=== PATIENT | male | born 1985 | race Caucasian/White ===

== ENCOUNTER → 2019-02-16 18:17 | Outpatient (CLI) | payer OTHER, SELFPAY ==
[2019-02-16 18:43] LABS: Basophils # 0.1 K/mm3 (0-0.2); Basophils % 0.6 % (0.1-2.0); Eosinophils # 0.4 K/mm3 (0.0-0.4); Eosinophils % 4.6 % (0.1-12.0); Hematocrit 44.4 % (42.0-52.0); Hemoglobin 15.3 g/dL (14.1-18.0); Lymphocytes # 2.2 K/mm3 (0.7-4.5); Lymphocytes % 27.2 % (10-50); Mean Corpuscular HGB Conc 34.4 g/dL (31.8-35.4); Mean Corpuscular Hemoglobin 29.3 pg (27.0-31.2); Mean Corpuscular Volume 85.2 fl (80-94); Mean Platelet Volume 8.3 fl (7.4-10.4); Monocytes # 0.6 K/mm3 (0.1-1.0); Monocytes % 7.6 % (1.7-9.3); Neutrophils # 4.9 K/mm3 (1.8-7.8); Neutrophils % 60.1 % (37.0-80.0); Platelet Count 395 K/mm3 (142-424); Red Blood Count 5.22 M/mm3 (4.60-6.20); Red Cell Distribution Width 12.5 % (11.5-17.5); White Blood Count 8.2 K/mm3 (4.8-10.8)
[2019-02-16 19:34] LABS: Alanine Aminotransferase 66 U/L (12-78); Albumin/Globulin Ratio 1.2 (1.1-1.8); Alkaline Phosphatase 91 U/L (46-116); Anion Gap 17.8 mEq/L (5-15); Aspartate Amino Transferase 37 U/L (15-37); Bilirubin,Total 0.4 mg/dL (0.2-1.0); Blood Urea Nitrogen 13 mg/dL (7-18); Calcium 9.1 mg/dL (8.5-10.1); Carbon Dioxide 22 mmol/L (21.0-32.0); Chloride 107 mmol/L (98-107); Cholesterol 166 mg/dL (140-200); Creatinine,Serum 0.89 mg/dL (0.70-1.30); Estimated Glomerular Filt Rate 99 ml/min (>60); GFR (African American) 120 ML/MIN (>60); Globulin 3.3 gm/dl (1.3-3.2); Glucose 106 mg/dL (74-106); HDL Cholesterol 33 mg/dL (27-67); LDL Cholesterol 80 mg/dL (0-130); Potassium 3.8 mmoL/L (3.5-5.1); Sodium 143 mmol/L (136-145); T4 (Thyroxine) 8.8 ug/dl (4.7-13.3); Total Protein,Serum 7.3 gm/dL (6.4-8.2); Triglycerides 266 mg/dL (30-200); VLDL Cholesterol 53 mg/dL (0-40)
[2019-02-18 07:13] LABS: Hep A Ab, IgM Negative (Negative); Hepatitis B Core Antibody IgM Negative (Negative); Hepatitis B Surface Antigen Negative (Negative)
[2019-02-19 17:23] LABS: Hepatitis C Antibody <0.1 s/co ratio (0.0-0.9)
== END ==
PROVIDERS: Visit Provider Nurse Practitioner Family
DX: E66.9 Obesity, unspecified (principal); Z13.220 Encounter for screening for lipoid disorders; Z13.21 Encounter for screening for nutritional disorder; Z11.59 Encounter for screening for other viral diseases; E55.9 Vitamin D deficiency, unspecified
CPT/HCPCS: 80053; 80061; 80074; 82652; 84436; 84443; 85025

== ENCOUNTER 2020-02-23 15:52 | Emergency (ER) | payer OTHER, SELFPAY ==
[2020-02-23 16:00] VITALS: BP 137/73; PULSE 60; RESP 20; TEMP 36.7; O2SAT 100; BMI 29.9
[2020-02-23 16:16] VITALS: BP 137/73; PULSE 60; RESP 20; TEMP 36.7; O2SAT 100; BMI 29.9
[2020-02-23 16:20] LABS: Apearance,Urine Cloudy (Clear); Color,Urine Red (Yellow); Specific Gravity, Urine 1.015 (1.005-1.030)
[2020-02-23 16:21] LABS: Blood, Urine 3+ (Negative); Glucose,Urine (UA) 100 (Negative); Ketones,Urine 40 (Negative); Protein,Urine 3+ (Negative)
[2020-02-23 16:22] LABS: Bilirubin,Urine 3+ (Negative); UTC Leukocyte Esterase,Urine 3+ (Negative); UTC Nitrate,Urine Positive (Negative); Urobilinogen,Urine 4 EU/dl (0.2)
--- NOTE | 2020-02-23 16:38 | HMH.EDUTC ---
[facility] [place] Clinical Impression: UTI (urinary tract infection) Qualifiers: Urinary tract infection type: site unspecified Hematuria presence: with hematuria Qualified Code(s): N39.0 - Urinary tract infection, site not specified Hematuria Qualifiers: Hematuria type: gross Qualified Code(s): R31.0 - Gross hematuria Disposition: Home, Self-Care Condition on Discharge: Good Instructions: Blood in Urine, DI for Urinary Tract Infection (UTI), DI for Hematuria, Ciprofloxacin Additional Instructions: Increase fluids. Water not Soda or Tea *Start antibiotic immediately and be sure to take as ordered for the FULL length of time although you should start to see improvement over the next 48 hours *Be SURE to follow up anytime for new or worsening symptoms with your family doctor. AND in 48 hours for urine culture results with your family doctor, if you do not have a doctor then you may call back to the [facility] for urine culture results and further treatment. We do recommend that you choose and establish care with a Primary Care Physician. AND follow up with them in 10-14 days to repeat UA to ensure infection is resolved and blood no longer present *Be sure to let your PCP know that we sent urine cultures from the [facility] so they can follow up to ensure that you area the on the correct antibiotic Call your doctor office and make appointment for 48 hours (2 days from today) to follow up and get the results of your urine culture and further treatment Make sure to take antibiotics and follow up with Family Doctor immediately if no improvement or any worsening of symptoms for further evaluation and referral to Urology if needed Straight to ER if any worsening of pain in your right side, worsening of blood in urine or any life threatening symptoms Return if needed Prescriptions: Ciprofloxacin HCl [Cipro 500mg Tab] 500 mg PO BID 10 Days #20 tab Transmission Status: Received by [id number] Referrals: Jaron Fritz MD [Primary Care Provider] - As needed Tone Mirza MD [Staff Physician] - As needed Time of Disposition: 16:46 Medical Decision Making - Renato Inquiry Pt receiving controlled substance: No Renato was queried for this patient: No Vital Signs: 02/23/20 16:00 02/23/20 16:16 02/23/20 16:52 Temperature 98.1 F 98.1 F 98.1 F Temperature Source Temporal Artery Scan Oral Pulse Rate 60 Pulse Rate [Right] 60 60 Respiratory Rate 20 20 20 Blood Pressure 137/73 Blood Pressure [Right Arm] 137/73 137/73 Blood Pressure Mean [Right Arm] 94 94 Blood Pressure Source Automatic Cuff Blood Pressure Source [Right Arm] Automatic Cuff Blood Pressure Position Sitting Blood Pressure Position [Right Arm] Sitting 02 Sat by Pulse Oximetry 100 100 Oxygen Delivery Method Room Air - Lab Data Lab results reviewed: Yes: I reviewed the patient's lab results. Lab Results 02/23/20 16:19: Urine Color Red, Urine Appearance Cloudy, Urine pH 5.0, Ur Specific [place] 1.015, Urine Protein 3+, Urine Glucose (UA) 100, Urine Ketones 40, Urine Blood 3+, Urine Nitrate Positive A, Urine Bilirubin 3+ A, Urine Urobilinogen 4, Ur Leukocyte Esterase 3+ A Orders (Tests/Meds): ORDERS Category Date Time Status Urine Culture Stat Micro 02/23/20 16:10 Ordered - Reevaluation(s) Time: 16:30 Reevaluation #1: Patient urine results viewed and discussed with patient Recommended transfer to ED for further work up and evaluation and CT to rule out kidney stones and other findings in urine Patient advised that he has been dieting Patient declined transfer states that he isnt having and pain at this time just some discomfort when he urinates again Discussed with patient the associated risks and still declined transfer States that he will try antibiotics and if still having issues will follow up with PCP or Urology that he did not want to go back over to the ED Time: 16:50 Reevaluation #3: Again discussed with patient transfer to the
[2020-02-23 16:52] VITALS: BP 137/73; PULSE 60; RESP 20; TEMP 36.7; O2SAT 100
== END 2020-02-23 16:55 | disposition home or self-care (01) ==
PROVIDERS: Emergency Provider Nurse Practitioner; PCP Emergency Medicine
DX: N30.01 Acute cystitis with hematuria (principal); Z88.1 Allergy status to other antibiotic agents
CPT/HCPCS: 81003; 87086; 99201

== ENCOUNTER → 2020-03-05 16:46 | Outpatient (CLI) | payer OTHER, SELFPAY | PROVIDERS: Visit Provider Emergency Medicine | DX: N39.0 Urinary tract infection, site not specified (principal) | CPT/HCPCS: 87086 ==

== ENCOUNTER 2020-07-10 13:51 | Emergency (ER) | payer OTHER, SELFPAY ==
--- NOTE | 2020-07-10 13:54 | HMH.EDGENADL ---
ED Disposition Clinical Impression: Kidney stone on right side UTI (urinary tract infection) Qualifiers: Urinary tract infection type: acute cystitis Hematuria presence: with hematuria Qualified Code(s): N30.01 - Acute cystitis with hematuria Disposition: Home, Self-Care Condition on Discharge: Good Instructions: Acute Abdominal Pain Additional Instructions: Please take meds as prescribed and use ibuprofen, always with food, for pain. Drink plenty of fluids. Please follow-up tomorrow with urologist for further management of kidney stones. Immediately return if any fever/chills, generalized malaise/weakness, intractable nausea/vomiting, increased pain, inability to follow-up with urology, or any other new concerning symptoms. Prescriptions: cephALEXin [Cephalexin 500mg Tab] 500 mg PO Q6H 10 Days #40 tab Transmission Status: Received by [id number] Tamsulosin HCl [Flomax 0.4mg capsule] 0.4 mg PO HS 7 Days #7 cap Transmission Status: Received by [id number] Referrals: Jaron Fritz MD [Primary Care Provider] - - Critical Care Critical Care Time: No Attestation: On , the high probability of a clinically significant, sudden or life threatening deterioration of the following system(s) required my full and direct attention, intervention and personal management. The time I documented below is in addition to time spent performing reported procedures but includes the following listed in this critical care notation. Medical Decision Making - Medical Records Medical records reviewed: Yes: I reviewed the patient's medical records. - Renato Inquiry Pt receiving controlled substance: No Vital Signs: 07/10/20 13:57 07/10/20 15:00 07/10/20 15:48 Temperature 97.9 F Temperature Source Oral Pulse Rate [Right Brachial] 93 H 87 86 Respiratory Rate 17 17 17 Blood Pressure [Right Arm] 144/97 H 131/82 139/76 Blood Pressure Mean [Right Arm] 112 98 97 Blood Pressure Source [Right Arm] Automatic Cuff Automatic Cuff Automatic Cuff Blood Pressure Position [Right Arm] Sitting Sitting Sitting 02 Sat by Pulse Oximetry 97 98 98 Oxygen Delivery Method Room Air Room Air Room Air - Lab Data Lab Results 07/10/20 14:10: WBC 10.0, RBC 5.08, Hgb 15.1, Hct 45.2, MCV 88.9, MCH 29.7, MCHC 33.4, RDW 12.5, Plt Count 390, MPV 7.4, Neut % (Auto) 63.8, Lymph % (Auto) 23.3, [place] % (Auto) 10.9 H, Eos % (Auto) 1.5, Baso % (Auto) 0.5, Neut # (Auto) 6.4, Lymph # (Auto) 2.3, [place] # (Auto) 1.1 H, Eos # (Auto) 0.2, Baso # (Auto) 0.1 07/10/20 14:10: Sodium 141, Potassium 3.6, Chloride 105, Carbon Dioxide 26, Anion Gap 13.6, BUN 17, Creatinine 1.30 H, Estimated Creat Clear 120, Estimated GFR 64, Est GFR ( Amer) 77, Glucose 112 H, Calcium 9.6, Total Bilirubin 1.0, AST 32, ALT 28, Alkaline Phosphatase 71, Total Protein 7.7, Albumin 4.7, Globulin 3.0, Albumin/Globulin Ratio 1.6, Amylase 55, Lipase 50 07/10/20 14:35: Urine Color Yellow, Urine Appearance Clear, Urine pH 6.0, Ur Specific [place] 1.025, Urine Protein 1+, Urine Glucose (UA) Negative, Urine Ketones Negative, Urine Blood 3+, Urine Nitrate Negative, Urine Bilirubin Negative, Urine Urobilinogen 0.2, Ur Leukocyte Esterase Trace, Urine RBC Occasional, Urine WBC 5-10 Result diagrams: 07/10/20 14:10 07/10/20 14:10 Orders (Tests/Meds): ED MEDICATIONS Generic Name Dose Route Start Last Admin Trade Name Freq PRN Reason Stop Dose Admin Sodium Chloride 1,000 mls @ 999 mls/hr 07/10/20 15:30 07/10/20 15:57 Sod Chlor 0.9% 1000ml Bag IV 07/10/20 16:30 999 mls/hr .Q1H1M SHANELLE Administration Discontinued Medications Generic Name Dose Route Start Last Admin Trade Name Freq PRN Reason Stop Dose Admin Cephalexin HCl 500 mg 07/10/20 16:24 Cephalexin 500mg Capsule PO 07/10/20 16:25 ONCE ONE Protocol Medical Decision Narrative: Patient presents the emergency department with complaints of right flank pain. At this time, differential di
[2020-07-10 13:57] VITALS: BP 144/97; PULSE 93; RESP 17; TEMP 36.6; O2SAT 97; BMI 28.8
--- NOTE | 2020-07-10 14:04 | CT_ITS ---
PROCEDURE: CT ABDOMEN PELVIS WO CON CLINICAL INDICATION: kidney stone rule out Right-sided abdominal pain COMPARISON: No exams were available for comparison TECHNIQUE: Axial images obtained with sagittal and coronal reformats. All CT scans at the facility use one or more dose reduction, viz: automated exposure control, ma/kV adjustment per patient size (including targeted exams where dose is matched to indication, i.e. head), or iterative reconstruction technique. FINDINGS: LOWER THORAX: No acute finding ABDOMEN & PELVIS: There is a 11 mm hypodensity in the hepatic dome on the left and may represent a cyst or hemangioma. Focal decreased attenuation is present in the left lobe of the liver at the falciform ligament region consistent with focal fatty infiltration. The gallbladder, spleen, adrenal glands, and pancreas have an unremarkable appearance. There is moderate to severe right hydronephrosis and hydroureter secondary to a 9 mm stone at the ureterovesical junction. There is also a smaller stone in the distal 1/3 of the right ureter measuring 3 mm. This is proximal to the UVJ stone. 2 mm stone is present in the mid polar region of the left kidney and in the lower pole of the right kidney. There is mild stranding of the right perinephric and [place] renal and periureteral fat with minimal stranding of the fat in the right pericolic gutter. The colon appears mildly thickened but could be due to nondistention. There are scattered diverticula but no evidence of diverticulitis. The appendix is also slightly prominent at 7 mm. There is no stranding of the periappendiceal fat. No acute bony findings. There is a small left inguinal hernia containing fat. There is a small umbilical hernia containing fat. IMPRESSION: 1. 9 mm right ureterovesical junction stone with moderate to severe right-sided hydroureteronephrosis. 2. Bilateral nephrolithiasis 3. Mild prominence of the appendix at 7 mm which is of questionable clinical significance. Please correlate with clinical parameters. No stranding of the periappendiceal fat. 4. Other nonacute findings as described above Dictated by: Sukhi Dozier MD 07/10/2020 14:54 Sukhi Dozier MD in [place] 07/10/2020 14:54
[2020-07-10 14:33] LABS: Basophils # 0.1 K/mm3 (0-0.2); Basophils % 0.5 % (0.1-2.0); Eosinophils # 0.2 K/mm3 (0.0-0.4); Eosinophils % 1.5 % (0.1-12.0); Hematocrit 45.2 % (42.0-52.0); Hemoglobin 15.1 g/dL (14.1-18.0); Lymphocytes # 2.3 K/mm3 (0.7-4.5); Lymphocytes % 23.3 % (10-50); Mean Corpuscular HGB Conc 33.4 g/dL (31.8-35.4); Mean Corpuscular Hemoglobin 29.7 pg (27.0-31.2); Mean Corpuscular Volume 88.9 fl (80-94); Mean Platelet Volume 7.4 fl (7.4-10.4); Monocytes # 1.1 K/mm3 (0.1-1.0); Monocytes % 10.9 % (1.7-9.3); Neutrophils # 6.4 K/mm3 (1.8-7.8); Neutrophils % 63.8 % (37.0-80.0); Platelet Count 390 K/mm3 (142-424); Red Blood Count 5.08 M/mm3 (4.60-6.20); Red Cell Distribution Width 12.5 % (11.5-17.5)
--- NOTE | 2020-07-10 14:43 | PC.NURSE ---
Pt up to restroom. UA sent to lab
[2020-07-10 14:55] LABS: Microscopic, Urine URINE MICROSCOPIC (MICROSCOPIC)
[2020-07-10 14:57] LABS: Appearance,Urine CLEAR (Clear); Bilirubin,Urine Negative (Negative); Blood, Urine 3+ (Negative); Color,Urine YELLOW (Yellow); Glucose,Urine (UA) Negative (Negative); Ketones,Urine Negative (Negative); Leukocyte Esterase,Urine TRACE (Negative); Nitrate,Urine Negative (Negative); Protein,Urine 1+ (Negative); Specific Gravity, Urine 1.025 (1.005-1.030); Urobilinogen,Urine 0.2 EU/dl (0.2)
[2020-07-10 14:57] LABS: Alanine Aminotransferase 28 U/L (12-78); Albumin Level 4.7 g/dl (3.5-5.0); Albumin/Globulin Ratio 1.6 (1.1-1.8); Alkaline Phosphatase 71 U/L (38-126); Amylase 55 U/L (30-110); Anion Gap 13.6 mEq/L (5-15); Aspartate Amino Transferase 32 U/L (17-59); Blood Urea Nitrogen 17 mg/dl (9-20); Calcium 9.6 mg/dl (8.4-10.2); Carbon Dioxide 26 mmol/L (22.0-30.0); Chloride 105 mmol/L (98-107); Creatinine Clearance Estimated 120 mL/min (50-200); Estimated Glomerular Filt Rate 64 ml/min (>60); GFR (African American) 77 ML/MIN (>60); Glucose 112 mg/dl (74-100); Lipase 50 U/L (23-300); Potassium 3.6 mmoL/L (3.5-5.1); Sodium 141 mmol/L (136-145); Total Protein,Serum 7.7 g/dl (6.3-8.2)
[2020-07-10 15:00] VITALS: BP 131/82; PULSE 87; RESP 17; O2SAT 98
[2020-07-10 15:14] LABS: RBC,Urine Occasional #/hpf (0-3)
[2020-07-10 15:48] VITALS: BP 139/76; PULSE 86; RESP 17; O2SAT 98
--- NOTE | 2020-07-10 16:07 | PC.NURSE ---
LESTER PIÑA speaking with Dr. Mirza
[2020-07-10 16:36] VITALS: BP 143/91; PULSE 60; O2SAT 98
[2020-07-10 17:17] VITALS: BP 144/75; PULSE 61; RESP 17; TEMP 36.6; O2SAT 99
== END 2020-07-10 17:24 | disposition home or self-care (01) ==
PROVIDERS: Emergency Provider Emergency Medicine; PCP Emergency Medicine
DX: N13.2 Hydronephrosis with renal and ureteral calculous obstruction (principal); N30.01 Acute cystitis with hematuria
CPT/HCPCS: 74176; 80053; 81001; 82150; 83690; 85025; 96365; 99283

== ENCOUNTER → 2020-07-18 08:39 | Outpatient (CLI) | payer OTHER, SELFPAY ==
--- NOTE | 2020-07-18 08:42 | XR_ITS ---
PROCEDURE: XR KUB CLINICAL INDICATION: kidney stone Follow-up kidney stone COMPARISON: CT CT ABDOMEN PELVIS WO CON from 07/10/2020 FINDINGS: There are multiple pelvic calcifications most of which are felt be due to phleboliths. There was a distal ureteral calculus noted on the previous CT scan measuring 8 mm. This may be represented by a triangular-shaped calcification in the right pelvic region. Suspect residual right UVJ stone. It is somewhat difficult to ascertain due to the multiple pelvic phleboliths. IMPRESSION: Right ureterovesical junction stone measuring approximately 6 mm with multiple pelvic phleboliths Dictated by: Sukhi Dozier MD 07/18/2020 14:37 Sukhi Dozier MD in [place] 07/18/2020 14:37
[2020-07-18 11:43] LABS: Coronavirus 19 IgG Antibody Negative (Negative); Coronavirus 19 IgM Antibody Negative (Negative)
== END ==
PROVIDERS: PCP Emergency Medicine; Visit Provider Urology
DX: Z01.818 Encounter for other preprocedural examination (principal); N20.0 Calculus of kidney; N20.1 Calculus of ureter
CPT/HCPCS: 36415; 74018; 86328

== ENCOUNTER 2020-07-19 10:09 | Day surgery (SDC) | payer OTHER, SELFPAY ==
[2020-07-19] VITALS (8 sets, daily range): BP systolic 126–150; BP diastolic 70–95; PULSE 62–94; RESP 12–18; TEMP 36.2–37; O2SAT 95–98; BMI 28.8
--- NOTE | 2020-07-19 11:33 | P.PN_ITS ---
[facility] Anesthesia Checklist - Structural Data Admitted From: Home Planned Operative Procedure/s: ureteroscopy w stone extraction Consent for Planned Operative Procedure(s) Verified: Yes - Additional verifications Anesthesia Reactions: No Hx Blood Transfusions: No Blood Transfusion Reaction: No - Airway Assessment C-Spine Mobility Assessed: Yes TMJ Mobility Assessed: Yes Dentition: Good Dentition - Neurological Assessment Level of Consciousness: Awake, Alert, Appropriate - Anesthesia Plan Anesthesia Risk discussed: Yes Anesthesia Plan: Patient unable to respond/answer ASA Class: II Anesthesia Type: General [facility] History I have reviewed the patient's past medical history: Yes Medical History: Denies:: Cancer, Chronic Obstructive Pulmonary Disease (COPD), Depression, Diabetes Mellitus Type 1, Diabetes Mellitus Type 2, Internal Pacemaker, MRSA, Pulmonary Embolism, Seizures, Transient Ischemic Attacks (TIA) *Have you ever received a pneumonia vaccine?: No *Have you received a flu vaccine this season?: No Other Medical History: Denies: Blood Transfusion Reaction Anesthesia experience/problems:: none Other Surgeries: Yes: No Previous Surgery. No: Pacemaker Amputation: No Fractures: No - *Social History Smoking Status: Never smoker Alcohol Intake: never Substance Use Type: denies use *Occupational Status:: employed Housing: house *Travel in the last 8 weeks: None - Psychiatric History Pschychiatric History:: Denies:: Depression Family Hx:: Hypertension
--- NOTE | 2020-07-19 11:34 | HMH.ANESI ---
[facility] Anesthesia Record Part I Intake, IV Amount: 1,500 Estimated blood loss (mL): 0 Urine output (mL): 0 Blood Pressure: 128/73 SaO2: 97 Pulse Rate: 71 Respiratory Rate: 12 Temperature: 98.3 F Patient is:: Awake, Stable Stable to PACU at:: 11:30
--- NOTE | 2020-07-19 12:16 | P.OP_ITS ---
Date of procedure: 07/19/20 Pre-op Diagnosis:: 9 mm right distal ureteral stone Post-op Diagnosis:: Same Procedure performed:: Right ureteroscopy with laser lithotripsy, stone extraction. Surgeon:: Tone Mirza MD OPTICS TEST TECHNICIAN:: Jacinto Choudhary Anesthesia: GETA Estimated blood loss (mL): 0 Clinical Note:: 34-year-old white male with history of 9 mm distal ureteral stone. He continues to have some waxing and waning of renal colic. He presents for urologic management. Operative findings:: 9 mm stone was at the right ureterovesical junction. Operative note:: Patient taken to the operating room after informed consent was obtained. Placed on the operating table in the supine position and general anesthesia administered. Preoperative antibiotics and sequential compression devices were placed. He was then placed into the dorsal lithotomy position and prepped and draped in the standard surgical fashion. The 22 Adria passed into the urethra and easily into the bladder. The bladder was examined in a systematic fashion and showed no mucosal abnormalities. The offending stone was at the right ureteral orifice and flexible graspers were passed through the scope but I was unable to grasp enough of the stone to put on through the ureteral orifice. The cystoscope then removed and the semirigid ureteroscope passed into the urethra and into the bladder. A 200 nm laser fiber was passed through the ureteroscope and the stone was broken at the ureteral orifice. We passed the scope on into the ureter and broke the rest of the stone into small pieces. The laser fiber then removed and our 0 tip stone basket passed through the scope and all stone fragments were evacuated. The stones were sent off for analysis. There appeared to be good efflux of urine from the ureter and no stent was deemed necessary. Bladder drained the scope removed. Urojet placed into the urethra for comfort measures. Patient tolerated procedure well without complications. Condition: stable Disposition: PACU Specimens:: Stone fragments Complications:: None
[2020-08-03 19:54] LABS: Specimen Type NOT PROVIDED
[2020-08-03 19:55] LABS: Ca oxalate dihydrate 50%; Size 4X4 mm
[2020-08-03 19:56] LABS: Photo TO FOLLOW
== END 2020-07-19 12:30 | disposition home or self-care (01) ==
LOC: OR 10:10
PROVIDERS: PCP Emergency Medicine; Visit Provider Urology
PROC: (CPT 52352; principal; 2020-07-19 11:45)
DX: N20.1 Calculus of ureter (principal); Z88.8 Allergy status to other drugs, medicaments and biological substances; Z79.899 Other long term (current) drug therapy; Z82.49 Family history of ischemic heart disease and other diseases of the circulatory system
CPT/HCPCS: 52317; 82370; 96374; J1956; J2405

== ENCOUNTER → 2020-11-25 08:16 | Outpatient (CLI) | payer OTHER, SELFPAY ==
--- NOTE | 2020-11-25 08:22 | US_ITS ---
PROCEDURE: US LIVER CLINICAL INDICATION: abn CT questionable lesion Liver lesion seen on previous CT COMPARISON: CT CT ABDOMEN PELVIS WO CON from 07/10/2020 FINDINGS: PANCREAS: Pancreas is not well delineated due to overlying bowel gas. CT or MRI without and with contrast with pancreatic protocol may provide further evaluation if clinically desired. LIVER: There is a 10 mm bilocular cystic area in the left hepatic lobe just superior to the gallbladder fossa which may correspond to the hypodensity noted on the previous CT scan. RIGHT KIDNEY: Unremarkable. Normal size and echogenicity. No hydronephrosis GALLBLADDER: No gallstones, gallbladder wall thickening, pericholecystic fluid, or biliary dilatation. IMPRESSION: 1. Small bilocular cystic area within the liver which may correspond to the CT abnormality. 2. Otherwise negative right upper quadrant ultrasound Dictated by: Sukhi Dozier MD 11/25/2020 16:28 Sukhi Dozier MD in [place] 11/25/2020 16:28
== END ==
PROVIDERS: PCP Emergency Medicine; Visit Provider Emergency Medicine
DX: R93.5 Abnormal findings on diagnostic imaging of other abdominal regions, including retroperitoneum (principal)
CPT/HCPCS: 76705

== ENCOUNTER 2022-02-16 11:28 | Observation (INO) | payer OTHER, SELFPAY ==
[2022-02-16 11:56] VITALS: BP 151/88; PULSE 90; RESP 20; TEMP 36.9; O2SAT 98; BMI 30.4
[2022-02-16 12:00] VITALS: O2SAT 98
[2022-02-16 12:33] LABS: Coronavirus 19, PCR Not Detected (NotDetected); Influenza A, PCR Not Detected (NotDetected); Influenza B, PCR Not Detected (NotDetected)
--- NOTE | 2022-02-16 12:43 | US_ITS ---
FINAL REPORT TECHNIQUE: Sonographic images of the testicles and scrotum were obtained in the longitudinal and transverse planes. CLINICAL HISTORY: swelling and infection-- diffuse swelling no fever or inj FINDINGS: The right testicle measures 4.3 x 3.0 x 3.0 centimeters. There is no intratesticular mass. There is a small right epididymal cyst. No extratesticular mass is identified. The left testicle measures 2.7 x 4.3 x 2.7 centimeters. There is no intratesticular mass. There is a small left epididymal cyst.. No extratesticular mass is identified. Color imaging reveals no evidence of testicular torsion. There is diffuse scrotal edema. The right epididymis is enlarged but not particularly hyperemic. IMPRESSION: No evidence of intratesticular mass or testicular torsion. Diffuse scrotal edema with epididymal enlargement but no hyperemia. Etiology unclear. Epididymitis is usually associated with intense hyperemia. Reviewed, Interpreted and Dictated by Jannie Gaston MD Transcribed by Mercedes Donnelly Authenticated by Jannie Gaston MD on 02/16/2022 04:18:47 PM [facility]
--- NOTE | 2022-02-16 12:46 | HMH.HP ---
*Admission Date: 02/16/22 *Chief complaint: scrotal infection *History of present illness: Patient is a 36-year-old white male who presents to my office with redness swelling of the scrotum. Patient relays that he has a number of pimples in his groin that he routinely pops. He relays that he squeezed a pimple that came up on his scrotum and subsequently noticed redness swelling and itching. Patient has multiple skin lesions in the inner thighs and groin which are suggestive of MRSA. Patient is able to urinate despite the swelling. He conveys no symptoms which would be concerning for obstruction. No fever no chills no systemic complaints [facility] History Medical History: Denies:: Cancer, Chronic Obstructive Pulmonary Disease (COPD), Depression, Diabetes Mellitus Type 1, Diabetes Mellitus Type 2, Internal Pacemaker, MRSA, Pulmonary Embolism, Seizures, Transient Ischemic Attacks (TIA) *Have you ever received a pneumonia vaccine?: No *Have you received a flu vaccine this season?: No Other Medical History: Denies: Blood Transfusion Reaction Other Surgeries: Yes: No Previous Surgery. No: Pacemaker Amputation: No Fractures: No - *Social History Smoking Status: Never smoker Alcohol Intake: never Substance Use Type: marijuana *Occupational Status:: employed Housing: house *Travel in the last 8 weeks: None - Psychiatric History Pschychiatric History:: Denies:: Depression Family Hx:: Heart Attack, Hyperlipidemia, Hypertension Review of Systems - Constitutional Denies chills - Eyes Denies blind spots - ENT Denies abnormal hearing - *Cardiovascular Denies chest pain - *Respiratory Denies chest congestion - *Gastrointestinal Denies abdominal pain - *Genitourinary Reports genital pain, Reports scrotal swelling, Denies painful urination - *Musculoskeletal Denies abnormal walking - Integumentary/Breasts Reports changing lesions, Reports redness, Reports boil, Reports lesions, Reports new lesions, Reports non-healing lesions, Reports sores, Denies yellowing of the skin - *Neurologic Denies abnormal walking - Psychiatric Denies behavioral changes - Endocrine Denies cold intolerance, Denies excessive sweating - Hematologic/Lymphatic Denies easy bleeding, Denies easy bruising - Allergic/Immunologic Denies hives Meds Home Medications Medication Instructions Recorded Confirmed Type No Known Home Medications 02/16/22 02/16/22 History Allergies Allergy/AdvReac Type Severity Reaction Status Date / Time cefaclor [From Ceclor] Allergy Unknown Verified 02/16/22 10:27 cefprozil [From Cefzil] Allergy Unknown Verified 02/16/22 10:27 Exam Vital signs and Labs for Last 24 Hours: Temp Pulse Resp BP Pulse Ox 98.5 F 90 20 151/88 H 98 02/16/22 11:56 02/16/22 11:56 02/16/22 11:56 02/16/22 11:56 02/16/22 11:56 I & O for Last 24 hours: Intake & Output 02/13/22 02/14/22 02/15/22 02/16/22 23:59 23:59 23:59 23:59 Weight 243 lb 9 oz - Constitutional no acute distress - *Routine HEENT Exam Head: Present: normocephalic Eye: Present: EOMI, PERRL ENT: Present: mucous membranes moist - *Routine Neck Exam Present: supple. Absent: lymphadenopathy - *Routine Respiratory Exam Present: CTA bilaterally - *Routine Cardiovascular Exam Present: RRR - *Routine Abdominal Exam Present: soft, normoactive bowel sounds. Absent: tenderness - *Routine Rectal Exam Rectal:: deferred - *Routine Genitalia Exam Genitalia:: other - *Routine Extremities Exam Absent: cyanosis, clubbing, edema - *Routine Skin Exam Present: erythema, warm, lesions - *Routine Neurological Exam Present: alert, oriented X3 Assessment and Plan (1) Scrotal abscess Status: Acute Category: Medical Code(s): N49.2 - Inflammatory disorders of scrotum - Assessment and plan all Dx Assessment and Plan for all problems:: Given that other skin lesions clinically resemble MRSA we will beg
[2022-02-16 13:02] LABS: Basophils # 0.2 K/mm3 (0-0.2); Basophils % 1.6 % (0.1-2.0); Eosinophils # 0.2 K/mm3 (0.0-0.4); Eosinophils % 1.2 % (0.1-12.0); Hematocrit 42.9 % (42.0-52.0); Hemoglobin 14.2 g/dL (14.1-18.0); Lymphocytes # 1.7 K/mm3 (0.7-4.5); Mean Corpuscular HGB Conc 33.2 g/dL (31.8-35.4); Mean Corpuscular Hemoglobin 28.3 pg (27.0-31.2); Mean Corpuscular Volume 85.2 fl (80-94); Mean Platelet Volume 8.7 fl (7.4-10.4); Monocytes # 0.8 K/mm3 (0.1-1.0); Monocytes % 5.3 % (1.7-9.3); Neutrophils # 12.6 K/mm3 (1.8-7.8); Platelet Count 585 K/mm3 (142-424); Red Blood Count 5.03 M/mm3 (4.60-6.20); Red Cell Distribution Width 13.7 % (11.5-17.5); White Blood Count 15.5 K/mm3 (4.8-10.8)
[2022-02-16 13:03] LABS: Chloride 105 mmol/L (98-107); MANUAL DIFFERENTIAL MANUAL DIFFERENTIAL (MANUAL DIFF); Potassium 3.7 mmoL/L (3.5-5.1); Sodium 139 mmol/L (136-145)
[2022-02-16 13:06] LABS: Alanine Aminotransferase 27 U/L (12-78); Albumin Level 4.4 g/dl (3.5-5.0); Albumin/Globulin Ratio 1.1 (1.1-1.8); Alkaline Phosphatase 120 U/L (38-126); Anion Gap 12.7 mEq/L (5-15); Aspartate Amino Transferase 32 U/L (17-59); Bilirubin,Total 0.4 mg/dl (0.2-1.3); Blood Urea Nitrogen 6 mg/dl (9-20); Calcium 9.6 mg/dl (8.4-10.2); Carbon Dioxide 25 mmol/L (22.0-30.0); Creatinine Clearance Estimated 201 mL/min (50-200); Estimated Glomerular Filt Rate 110 ml/min (>60); GFR (African American) 133 ML/MIN (>60); Glucose 112 mg/dl (74-100); Total Protein,Serum 8.4 g/dl (6.3-8.2)
[2022-02-16 13:23] LABS: Lymphocytes % 12 % (10-50); Monocytes % 11 % (2-9); Neutrophils % 76 % (42-76); Total Cells Counted 100
[2022-02-16 13:24] LABS: Platelet Estimate Moderate Increase; RBC Morphology Normal
--- NOTE | 2022-02-16 13:32 | P.CONPHA_ITS ---
[facility] VTE Monitoring - Patient Demographics Admission date: 02/16/22 Report Date: 02/16/22 Time: 13:32 Allergies/Adverse Reactions: Patient Allergies cefaclor [From Ceclor] Allergy (Unknown, Verified 02/16/22 10:27) cefprozil [From Cefzil] Allergy (Unknown, Verified 02/16/22 10:27) Height: 1.91 m Weight: 110.478 kg Patient Problems: Current Active Problems Scrotal abscess (Acute) - VTE Risk Labs: VTE Related Lab Results Hgb 14.2 g/dL (14.1-18.0) 02/16/22 12:10 Hct 42.9 % (42.0-52.0) 02/16/22 12:10 Plt Count 585 K/mm3 (142-424) H 02/16/22 12:10 BUN 6 mg/dl (9-20) L 02/16/22 12:10 Creatinine 0.80 mg/dl (0.66-1.25) 02/16/22 12:10 Estimated Creat Clear 201 mL/min (50-200) 02/16/22 12:10 - Prophylaxis VTE Prophylaxis Ordered?: Yes Types of VTE Prophylaxis: TEDS Knee High Location of Applied Device: Bilateral Lower Extremeties
--- NOTE | 2022-02-16 13:33 | HMH.PHACONS ---
- Pharmacy Consult Date: 02/16/22 Time: 13:33 Referring provider: DR. FARIAS Reason for Consult:: VANCOMYCIN DOSING Allergies and ADEs:: Allergies Allergy/AdvReac Type Severity Reaction Status Date / Time cefaclor [From Ceclor] Allergy Unknown Verified 02/16/22 10:27 cefprozil [From Cefzil] Allergy Unknown Verified 02/16/22 10:27 Home Medications:: Home Medications Medication Instructions Recorded Confirmed Type No Known Home Medications 02/16/22 02/16/22 History Height: 1.91 m Weight: 110.478 kg Laboratory Results:: Laboratory Results - last 24 hr 02/16/22 12:10: WBC 15.5 H, RBC 5.03, Hgb 14.2, Hct 42.9, MCV 85.2, MCH 28.3, MCHC 33.2, RDW 13.7, Plt Count 585 H, MPV 8.7, Neut % (Auto) 81.0 H, Lymph % (Auto) 11.0, Dickenson % (Auto) 5.3, Eos % (Auto) 1.2, Baso % (Auto) 1.6, Neut # (Auto) 12.6 H, Lymph # (Auto) 1.7, Dickenson # (Auto) 0.8, Eos # (Auto) 0.2, Baso # (Auto) 0.2, Total Counted 100, Neutrophils % (Manual) 76, Band Neutrophils % 1.0, Lymphocytes % (Manual) 12, Monocytes % (Manual) 11 H, Platelet Estimate Moderate increase, RBC Morphology Normal 02/16/22 12:10: Sodium 139, Potassium 3.7, Chloride 105, Carbon Dioxide 25, Anion Gap 12.7, BUN 6 L, Creatinine 0.80, Estimated Creat Clear 201, Estimated GFR 110, Est GFR ( Amer) 133, Glucose 112 H, Calcium 9.6, Total Bilirubin 0.4, AST 32, ALT 27, Alkaline Phosphatase 120, Total Protein 8.4 H, Albumin 4.4, Globulin 4.0 H, Albumin/Globulin Ratio 1.1 02/16/22 12:12: SARS-CoV-2 (PCR) Not detected, Influenza A Untype (PCR) Not detected, Influenza Type B (PCR) Not detected Medical History: Denies:: Cancer, Chronic Obstructive Pulmonary Disease (COPD), Depression, Diabetes Mellitus Type 1, Diabetes Mellitus Type 2, Internal Pacemaker, MRSA, Pulmonary Embolism, Seizures, Transient Ischemic Attacks (TIA) Assessment and Plan (1) Scrotal abscess Status: Acute Category: Medical Code(s): N49.2 - Inflammatory disorders of scrotum - Assessment and plan all Dx Assessment and Plan for all problems:: Pharmacokinetic dosing service Objective: Patient: Floor: Age: 36 yo Serum creatinine: 0.80 mg/dL Height: 75.0 Inches Weight (kg): 110.4 Assessment: IBW (kg): 84.50 Dosing wt(kg): 110.4 Estimated Creatinine clearance (ml/min): 130 Clearance limited to 130 ml/min to reduce risk of overdosing. CRCL method: Cockcroft and Gault using ibw(default). Drug selected: Vancomycin Loading dose (mg): Vd (liters): 88.3 (factor used: 0.8 L/kg) Williams (hr-1): 0.112 Half life (hrs): 6.19 CLvanco=?? 9.890 L/hr Recommended dose: 2500 mg Interval: 12 hrs Infusion time (hrs): 2.0 Predicted peak (mcg/mL): 34.3 Predicted trough (mcg/mL): 11.19 Total body weight is being used for vancomycin dosing. Recommendations: Give Vancomycin 2500 mg q 12 hrs with an expected Cpeak of 34.3 mcg/ml and an expected Ctrough of 11.19 mcg/ml AUC 0-24 /MARIA ESTHER Data: MARIA ESTHER 0.5 mcg/mL:?? AUC/MARIA ESTHER:? 1011.1 MARIA ESTHER 1.0 mcg/mL:?? AUC/MARIA ESTHER:? 505.6 --------- MARIA ESTHER 1.5 mcg/mL:?? AUC/MARIA ESTHER:? 337.0 MARIA ESTHER 2.0 mcg/mL:?? AUC/MARIA ESTHER:? 252.8 Thank you for the consult, will continue to follow. -RICK GONZALES, SUSAND
--- NOTE | 2022-02-16 15:15 | PC.NURSE ---
Called and left a message for MD Savage regarding pt's diet. Awqaiting call back,
--- NOTE | 2022-02-16 15:16 | PC.NURSE ---
Called MD Savage regarding pt diet order. Awaiting call back.
--- NOTE | 2022-02-16 15:37 | HMH.CONS ---
*Admission Date: 02/16/22 *Reason for consult:: Scrotal swelling *History of present illness: Patient is a 36-year-old white male with a 3-day history of scrotal swelling. He states the swelling began after he had pushed very hard on the small pustule at the ventral base of his penis. He denies any trauma or recent increase in strenuous activities. Patient states that after he popped the pustule at the base of his penis he had some redness swelling and itching associated with the area. Patient states that he routinely pops some pustules in his groin. He also states some of the lesions under his arms and these are consistent with hidradenitis suppurativa. Patient denies any associated fevers or chills. His white count today is slightly elevated at 15.5. He has been started on vancomycin for possible MRSA. [facility] History Medical History: Denies:: Cancer, Chronic Obstructive Pulmonary Disease (COPD), Depression, Diabetes Mellitus Type 1, Diabetes Mellitus Type 2, Internal Pacemaker, MRSA, Pulmonary Embolism, Seizures, Transient Ischemic Attacks (TIA) *Have you ever received a pneumonia vaccine?: No *Have you received a flu vaccine this season?: No Other Medical History: Denies: Blood Transfusion Reaction Other Surgeries: Yes: No Previous Surgery. No: Pacemaker Amputation: No Fractures: No - *Social History Smoking Status: Never smoker Alcohol Intake: never Substance Use Type: marijuana *Occupational Status:: employed Housing: house *Travel in the last 8 weeks: None - Psychiatric History Pschychiatric History:: Denies:: Depression Family Hx:: Heart Attack, Hyperlipidemia, Hypertension Review of Systems - Review of Systems Review of systems:: pertinent systems reviewed and negative unless documented below - *Neurologic Denies abnormal walking, Denies abnormal hearing, Denies behavioral changes Meds Home Medications Medication Instructions Recorded Confirmed Type No Known Home Medications 02/16/22 02/16/22 History Allergies Allergy/AdvReac Type Severity Reaction Status Date / Time cefaclor [From Ceclor] Allergy Unknown Verified 02/16/22 10:27 cefprozil [From Cefzil] Allergy Unknown Verified 02/16/22 10:27 Exam Vital signs and Labs for Last 24 Hours: Temp Pulse Resp BP Pulse Ox 98.5 F 90 20 151/88 H 98 02/16/22 11:56 02/16/22 11:56 02/16/22 11:56 02/16/22 11:56 02/16/22 12:00 Laboratory Results - last 24 hr 02/16/22 12:10: WBC 15.5 H, RBC 5.03, Hgb 14.2, Hct 42.9, MCV 85.2, MCH 28.3, MCHC 33.2, RDW 13.7, Plt Count 585 H, MPV 8.7, Neut % (Auto) 81.0 H, Lymph % (Auto) 11.0, Jennings % (Auto) 5.3, Eos % (Auto) 1.2, Baso % (Auto) 1.6, Neut # (Auto) 12.6 H, Lymph # (Auto) 1.7, Jennings # (Auto) 0.8, Eos # (Auto) 0.2, Baso # (Auto) 0.2, Total Counted 100, Neutrophils % (Manual) 76, Band Neutrophils % 1.0, Lymphocytes % (Manual) 12, Monocytes % (Manual) 11 H, Platelet Estimate Moderate increase, RBC Morphology Normal 02/16/22 12:10: Sodium 139, Potassium 3.7, Chloride 105, Carbon Dioxide 25, Anion Gap 12.7, BUN 6 L, Creatinine 0.80, Estimated Creat Clear 201, Estimated GFR 110, Est GFR ( Amer) 133, Glucose 112 H, Calcium 9.6, Total Bilirubin 0.4, AST 32, ALT 27, Alkaline Phosphatase 120, Total Protein 8.4 H, Albumin 4.4, Globulin 4.0 H, Albumin/Globulin Ratio 1.1 02/16/22 12:12: SARS-CoV-2 (PCR) Not detected, Influenza A Untype (PCR) Not detected, Influenza Type B (PCR) Not detected I & O for Last 24 hours: Intake & Output 02/13/22 02/14/22 02/15/22 02/16/22 23:59 23:59 23:59 23:59 Weight 110.478 kg - Constitutional no acute distress - *Routine HEENT Exam Head: Present: normocephalic Eye: Present: EOMI, PERRL ENT: Present: mucous membranes moist - *Routine Neck Exam Present: supple. Absent: lymphadenopathy - *Routine Respiratory Exam Absent: accessory muscle use - *Routine Cardiovascular Exam Absent: JVD - *Routine Abdominal Exam Present: soft. Absent: tenderness
[2022-02-16 16:00] VITALS: BP 133/66; PULSE 64; RESP 18; TEMP 36.4; O2SAT 96
--- NOTE | 2022-02-16 18:27 | PC.NURSE ---
Pt arrived to floor 1130, pt has been pleasant. VSS. No complaints of pain this shift.
[2022-02-16 20:00] VITALS: BP 131/72; PULSE 66; RESP 17; TEMP 36.9; O2SAT 98
[2022-02-17 03:22] VITALS: BP 143/83; PULSE 63; RESP 18; TEMP 36.5; O2SAT 96
[2022-02-17 05:00] VITALS: BMI 29.9
[2022-02-17 07:29] LABS: Basophils # 0.1 K/mm3 (0-0.2); Basophils % 0.8 % (0.1-2.0); Eosinophils # 0.3 K/mm3 (0.0-0.4); Eosinophils % 2.5 % (0.1-12.0); Hematocrit 41.2 % (42.0-52.0); Hemoglobin 13.7 g/dL (14.1-18.0); Lymphocytes # 2.1 K/mm3 (0.7-4.5); Lymphocytes % 17.8 % (10-50); Mean Corpuscular HGB Conc 33.2 g/dL (31.8-35.4); Mean Corpuscular Hemoglobin 28.6 pg (27.0-31.2); Mean Corpuscular Volume 86.1 fl (80-94); Monocytes # 0.9 K/mm3 (0.1-1.0); Monocytes % 7.7 % (1.7-9.3); Neutrophils # 8.4 K/mm3 (1.8-7.8); Neutrophils % 71.2 % (37.0-80.0); Platelet Count 497 K/mm3 (142-424); Red Blood Count 4.79 M/mm3 (4.60-6.20); Red Cell Distribution Width 13.6 % (11.5-17.5); White Blood Count 11.8 K/mm3 (4.8-10.8)
[2022-02-17 07:32] LABS: Chloride 105 mmol/L (98-107)
[2022-02-17 07:33] LABS: Sodium 140 mmol/L (136-145)
[2022-02-17 07:35] LABS: Alanine Aminotransferase 23 U/L (12-78); Alkaline Phosphatase 106 U/L (38-126); Aspartate Amino Transferase 30 U/L (17-59); Bilirubin,Total 0.5 mg/dl (0.2-1.3); Blood Urea Nitrogen 8 mg/dl (9-20); Creatinine Clearance Estimated 177 mL/min (50-200); Estimated Glomerular Filt Rate 96 ml/min (>60); GFR (African American) 116 ML/MIN (>60)
[2022-02-17 07:36] LABS: Albumin Level 4.2 g/dl (3.5-5.0); Albumin/Globulin Ratio 1.1 (1.1-1.8); Calcium 9.6 mg/dl (8.4-10.2); Carbon Dioxide 27 mmol/L (22.0-30.0); Globulin 3.7 g/dL (1.3-3.2); Glucose 100 mg/dl (74-100); Total Protein,Serum 7.9 g/dl (6.3-8.2)
[2022-02-17 08:00] VITALS: BP 128/82; PULSE 70; RESP 20; TEMP 36.5; O2SAT 98
--- NOTE | 2022-02-17 08:25 | HMH.DCSUM ---
General - General Admission date:: 02/16/22 Discharge date: 02/17/22 HPI HPI: Patient is a 36-year-old white male who presents to my office with redness swelling of the scrotum. Patient relays that he has a number of pimples in his groin that he routinely pops. He relays that he squeezed a pimple that came up on his scrotum and subsequently noticed redness swelling and itching. Patient has multiple skin lesions in the inner thighs and groin which are suggestive of MRSA. Patient is able to urinate despite the swelling. He conveys no symptoms which would be concerning for obstruction. No fever no chills no systemic complaints Hospital Course Hospital Course: Patient is a 36-year-old white male who presents to my office with redness swelling of the scrotum. Patient relays that he has a number of pimples in his groin that he routinely pops. He relays that he squeezed a pimple that came up on his scrotum and subsequently noticed redness swelling and itching. Patient has multiple skin lesions in the inner thighs and groin which are suggestive of MRSA. White blood cell count on admission 15.5 has decreased to 11.8, hemoglobin stable Chemistries are nonactionable he has received vancomycin IV 02/16/22 scrotum ultrasound IMPRESSION: No evidence of intratesticular mass or testicular torsion. Diffuse scrotal edema with epididymal enlargement but no hyperemia. Etiology unclear. Epididymitis is usually associated with intense hyperemia. Urology has seen and recommends: Patient with a 3-day history of generalized scrotal swelling preceded by manipulation of a small pustule at the penoscrotal junction. Patient with evidence of hidradenitis suppurativa in his groin and his underarms. Ultrasound performed earlier shows evidence of bilateral epididymitis about patient's clinical examination shows no tenderness of the scrotal or with examination. Scrotal skin is thickened and agree with vancomycin treatment at this time. Scrotal elevation should also be observed. There is no evidence of any external scrotal abscess at this time. We will follow along with you. Epididymitis: Has received vancomycin IV Will be discharged home on clindamycin and Bactrim DS 36-year-old male patient sitting up in bed resting quietly with eyes open. He denies any scrotal pain, scrotum still edematous but looking better than yesterday. 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 Hygiene stressed and instructed to shower soon as returning home from work. We discussed discharge home today, and he is agreement with this. He also states he will make follow-up appointments PLAN: 1. We will discharge home today 2. Bactrim DS 3. Clindamycin 4. Follow-up with PCP in 1 week 5. Follow-up with urology in 2 weeks 6. Scrotal elevation Objective Vital signs: Temp Pulse Resp BP Pulse Ox 97.7 F 70 20 128/82 98 02/17/22 08:00 02/17/22 08:00 02/17/22 08:00 02/17/22 08:00 02/17/22 08:00 no acute distress - *Routine HEENT Exam Head: Present: normocephalic Eye: Present: EOMI ENT: Present: mucous membranes moist - *Routine Neck Exam Present: trachea midline. Absent: tracheal deviation - *Routine Respiratory Exam Present: CTA bilaterally. Absent: accessory muscle use - *Routine Cardiovascular Exam Present: RRR - *Routine Abdominal Exam Present: soft, normoactive bowel sounds. Absent: tenderness, firm - *Routine Exam Penile: Present: swelling Scrotal: Present: swelling Groin: Present: swelling - *Routine Extremities Exam Present: full ROM, pulses intact. Absent: cyanosis, clubbing, edema - *Routine Skin Exam Present: intact, erythema, lesions, wounds. Absent: cyanosis - *Routine Neurological Exam Present: alert, oriented X3. Absent: motor deficit - Routine Psychiatric Exam Presen
--- NOTE | 2022-02-17 09:32 | HMH.PHAINT ---
DISCHARGE MEDICATION COUNSELING PROVIDED. DISCUSSED SHORT-COURSE CLINDAMYCIN AND BACTRIM AND HOW TO TAKE (BACTRIM BID, CLINDAMYCIN Q8H, PREFERABLY WITH FOOD TO CUT DOWN ON GI DISCOMFORT). ADVISED OVER SIDE EFFECTS (NAUSEA, VOMITING, SUN SENSITIVITY WITH BACTRIM). PATIENT ENDORSED NO QUESTIONS AT THIS TIME.
--- NOTE | 2022-02-18 11:52 | CARE MANAGER ---
Contacted patient related to hospital discharge follow up. He is aware of follow up appointments with Dr. Savage and Dr. Mirza. He was able to picker feeder both his antibiotics and states he is feeling very well. He denies any questions or concerns at this time.
== END 2022-02-17 09:50 | disposition home or self-care (01) ==
PROVIDERS: Admitting Provider Family Medicine; PCP Emergency Medicine; Visit Provider Family Medicine
DX: N49.2 Inflammatory disorders of scrotum (principal); Z20.822 Contact with and (suspected) exposure to COVID-19; N45.1 Epididymitis
CPT/HCPCS: 36415; 76870; 80053; 85007; 85025; 87040; C9803; G0378; J3370; U0003; U0005

== ENCOUNTER → 2022-03-31 15:58 | Outpatient (POV) | payer OTHER, SELFPAY | PROVIDERS: Visit Provider Dermatology | DX: Z00.00 Encounter for general adult medical examination without abnormal findings (principal) ==

== ENCOUNTER 2022-07-31 15:00 | Outpatient (RCR) | payer OTHER, SELFPAY ==
--- NOTE | 2022-06-11 16:18 | HMH.PTOPWND ---
Rehab Outpt Wound Evaluation Rehab OP Wound Evaluation Start: 06/11/22 14:51 Freq: Status: Active Protocol: Document 06/11/22 16:11 CHICHONICOLETTE (Rec: 06/11/22 16:18 PHORNE [id number]) E-signed By Ronny Gallegos, PT Subjective/History History History Pt is 36 yowm who presents with ~3 mo hx of chronic scrotal edema. He has hx of Hidradenitis Suppurative with extensive involvement in B inguinal region and now the scrotum. He reports no c/o pain with his edema and it does decrease with supported positioning. He has difficulty with the edema returning throughout the day due to his work activites. Subjective Subjective Pt with 0/10 pain this date. Scrotum circumference measured at 40cm this date. Fibrotic edema throughout the scrotum, with woody tissue quality. Lymphedema Eval Classification of Lymphedema Secondary Lymphedema Yes Stemmer's sign Stemmer's Sign no Stage of Lymphedema Lymphedema stages Stage III (Non-pitting, fibrosis and sclerosis, skin changes) Skin Changes Dry Skin Yes Taut, Shiny Skin Yes Skin Folds Yes Hyperkeratosis Yes Papillomatosis Yes Redness Yes Wounds Yes Discoloration of Skin Yes Other Changes Yes Affected Extremities Areas Affected by Lymphedema/Edema Right Lower Extremity,Left Lower Extremity,Genital/ Inguinal Manual Lymphatic Drainage Treatment Area MLD Treatment Area Abdomen,Right Lower Extremity, Left Lower Extremity,Genital/ Inguinal Wound Problems/Impairments Impairments Problems/Impairmments Impaired Walking,Impaired Standing,Impaired Sitting, Impaired Shower/Bathing, Impaired Recreational Activities,Increased Edema, Lymphedema Present,Wound Care Needs,Impaired Self Care/Self Management Prognosis Rehab Potential [facility]
--- NOTE | 2022-07-16 16:17 | HMH.RHREAS ---
Rehab Reassessment Rehab OP Re-assessment Start: 07/16/22 16:09 Freq: Status: Active Protocol: Document 07/16/22 16:10 KARYN (Rec: 07/16/22 16:16 PHORDONOVAN [id number]) E-signed By Ronny Gallegos, PT Rehab Re-assessment Subjective Subjective Pt reports he feels significantly better overall. 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 Objective Objective Notes Scrotal edema: Significant reduction in overall circumference noted this date. Much less fibrotic edema during palpation. Natural skin wrinkles beginning to appear with much less shiny skin observed. Multiple small open wounds remain along B inguinal area which is somewhat baseline for this patient. Assessment Progress Assessment Progressing as Expected Assessment Notes Showing response to MLD and increased scrotal compression. Pt becoming independent with self MLD, but continues to need minimal reinforcement. Again recommended continued diaphragmatic breathing techniques to help clear the abdomen of fluid. Patient goals met ST,2,3 Goals Not Met LT,2,3,4,5 Revised Goals none Plan Plan Continue per initial POC. Trying to assist pt with obtaining a lymphedema compression pump for home use to aid independent treatment. Frequency of Therapy 1 x/wk Duration of therapy 4 wks Time and Billing Re-Eval Time 14 Re-Eval Billing Units 1 PHYSICIAN CERTIFICATION: I certify the specified therapy services for Jaron Fox are required, authorized, and reviewed every 30 days.
== END 2022-07-31 15:05 | disposition home or self-care (01) ==
LOC: PT 15:00
PROVIDERS: PCP Family Medicine; Visit Provider Urology
DX: I89.0 Lymphedema, not elsewhere classified (principal)
CPT/HCPCS: 97140; 97163; 97164

== ENCOUNTER 2023-09-28 07:30 | Outpatient (CLI) | payer OTHER, SELFPAY | END 2023-09-28 23:59 | LOC: LAB.DROPOF 09-29 07:31 | PROVIDERS: PCP Nurse Practitioner Family; Visit Provider Nurse Practitioner Family | DX: N39.0 Urinary tract infection, site not specified (principal); B96.89 Other specified bacterial agents as the cause of diseases classified elsewhere | CPT/HCPCS: 87086 ==

== ENCOUNTER 2023-11-04 19:27 | Outpatient (CLI) | payer OTHER, SELFPAY ==
[2023-11-04 18:18] LABS: Basophils % 0.3 % (0.1-2.0); Eosinophils # 0.5 K/mm3 (0.0-0.4); Eosinophils % 2.8 % (0.1-12.0); Hematocrit 40.9 % (42.0-52.0); Hemoglobin 13.6 g/dL (14.1-18.0); Lymphocytes # 2.8 K/mm3 (0.7-4.5); Lymphocytes % 17.3 % (10-50); Mean Corpuscular HGB Conc 33.3 g/dL (31.8-35.4); Mean Corpuscular Hemoglobin 27.1 pg (27.0-31.2); Mean Corpuscular Volume 81.4 fl (80-94); Mean Platelet Volume 8.2 fl (7.4-10.4); Neutrophils # 12.1 K/mm3 (1.8-7.8); Neutrophils % 73.6 % (37.0-80.0); Platelet Count 649 K/mm3 (142-424); Red Blood Count 5.02 M/mm3 (4.60-6.20); Red Cell Distribution Width 15.1 % (11.5-17.5); White Blood Count 16.4 K/mm3 (4.8-10.8)
[2023-11-04 18:20] LABS: MANUAL DIFFERENTIAL MANUAL DIFFERENTIAL (MANUAL DIFF)
[2023-11-04 18:27] LABS: Alanine Aminotransferase 44 U/L (12-78); Albumin Level 4.1 g/dl (3.5-5.0); Albumin/Globulin Ratio 1.1 (1.1-1.8); Alkaline Phosphatase 117 U/L (38-126); Anion Gap 15.4 mEq/L (5-15); Aspartate Amino Transferase 35 U/L (17-59); Bilirubin,Total 0.4 mg/dl (0.2-1.3); Blood Urea Nitrogen 15 mg/dl (9-20); Calcium 9.5 mg/dl (8.4-10.2); Carbon Dioxide 23 mmol/L (22.0-30.0); Chloride 105 mmol/L (98-107); Chol/HDL Ratio 4.4 (1-3.5); Cholesterol 141 mg/dl (140-200); Estimated Glomerular Filt Rate 69 ml/min (>60); GFR (African American) 83 ML/MIN (>60); Globulin 3.9 g/dL (1.3-3.2); Glucose 90 mg/dl (74-100); HDL Cholesterol 32 mg/dl (40-60); Potassium 4.4 mmoL/L (3.5-5.1); Sodium 139 mmol/L (136-145); Triglycerides 93 mg/dl (30-150); VLDL Cholesterol 19 mg/dL (0-40)
[2023-11-04 18:38] LABS: Direct LDL Cholesterol 77.81 mg/dL (100-129)
[2023-11-04 18:48] LABS: 25-OH Vitamin D, Total < 12.8 ng/mL (30-100)
[2023-11-04 18:54] LABS: Eosinophils % 1 % (0-3); Hypochromasia 1+; Lymphocytes % 17 % (10-50); Microcytosis 1+; Monocytes % 2 % (2-9); Neutrophils % 79 % (42-76); Platelet Estimate Slight Increase; Total Cells Counted 100
[2023-11-04 18:58] LABS: Thyroid Stimulating Hormone 1.27 uIU/mL (0.465-4.68)
== END 2023-11-04 23:59 ==
LOC: LAB.DROPOF 19:27
PROVIDERS: PCP Nurse Practitioner Family; Visit Provider Nurse Practitioner Family
DX: R10.9 Unspecified abdominal pain (principal); R31.9 Hematuria, unspecified; E55.9 Vitamin D deficiency, unspecified; D64.9 Anemia, unspecified
CPT/HCPCS: 80053; 80061; 82306; 84443; 85007; 85025

== ENCOUNTER 2023-11-24 12:01 | Outpatient (CLI) | payer OTHER, SELFPAY ==
--- NOTE | 2023-11-24 12:08 | US_ITS ---
FINAL REPORT TECHNIQUE: Sonographic images of the testicles and scrotum were obtained in the longitudinal and transverse planes. CLINICAL HISTORY: .bilat test swelling-- hx of lymphadema -- drainage on rt COMPARISON: 02/16/2022 FINDINGS: The right testicle measures 3.6 x 2.4 x 2.6 centimeters. There is no intratesticular mass. The right epididymis is not well-seen. There is no evidence of torsion. No extratesticular mass is identified. There is a moderate hydrocele present. The left testicle measures 4.1 x 2.3 x 2.6 centimeters. There is no intratesticular mass. The epididymis is within normal limits. No extratesticular mass is identified. A small hydrocele is present. There is significant scrotal edema within the subcutaneous tissues. Superficial to the right testicle, there is a 3 cm irregular collection in the soft tissues which appears to represent fluid, and may represent a hematoma, seroma, or abscess. Color imaging reveals no evidence of testicular torsion. IMPRESSION: No evidence of intratesticular mass or testicular torsion. Significant scrotal edema with ill-defined fluid collection in the soft tissues superficial to the right testicle, that may represent cellulitis, or abscess. Would consider CT to rule out Brando's gangrene. Reviewed, Interpreted and Dictated by Jannie Gaston MD Transcribed by Floresita Kaur Authenticated and [facility]
== END 2023-11-24 23:59 ==
LOC: RAD 12:03
PROVIDERS: PCP Nurse Practitioner Family; Visit Provider Nurse Practitioner Family
DX: N50.819 Testicular pain, unspecified (principal); N50.89 Other specified disorders of the male genital organs; N49.2 Inflammatory disorders of scrotum
CPT/HCPCS: 76870

== ENCOUNTER 2023-12-16 16:07 | Outpatient (CLI) | payer OTHER, SELFPAY ==
--- NOTE | 2023-12-16 16:20 | XR_ITS ---
PROCEDURE INFORMATION: Exam: XR Chest Exam date and time: 12/16/2023 4:23 PM Age: 38 years old Clinical indication: Other: Skin condition; Additional info: Skin condition--hs TECHNIQUE: Imaging protocol: Radiologic exam of the chest. Views: 2 views. COMPARISON: CR XR KUB 07/18/2020 8:43 AM FINDINGS: Lungs: Normal. Pleural spaces: Normal. No pleural effusion. No pneumothorax. Heart/Mediastinum: Normal. No cardiomegaly. Bones/joints: Unremarkable. IMPRESSION: No acute findings.
[2023-12-16 17:17] LABS: Basophils # 0.1 K/mm3 (0-0.2); Basophils % 0.5 % (0.1-2.0); Eosinophils # 0.3 K/mm3 (0.0-0.4); Hematocrit 39.2 % (42.0-52.0); Hemoglobin 12.6 g/dL (14.1-18.0); Lymphocytes # 2.2 K/mm3 (0.7-4.5); Lymphocytes % 13.2 % (10-50); Mean Corpuscular HGB Conc 32.2 g/dL (31.8-35.4); Mean Corpuscular Hemoglobin 26.5 pg (27.0-31.2); Mean Corpuscular Volume 82.3 fl (80-94); Mean Platelet Volume 7.8 fl (7.4-10.4); Monocytes # 0.8 K/mm3 (0.1-1.0); Monocytes % 4.7 % (1.7-9.3); Neutrophils # 13.2 K/mm3 (1.8-7.8); Neutrophils % 79.7 % (37.0-80.0); Platelet Count 693 K/mm3 (142-424); Red Blood Count 4.76 M/mm3 (4.60-6.20); Red Cell Distribution Width 15.1 % (11.5-17.5); White Blood Count 16.5 K/mm3 (4.8-10.8)
[2023-12-16 17:20] LABS: MANUAL DIFFERENTIAL MANUAL DIFFERENTIAL (MANUAL DIFF)
[2023-12-16 17:50] LABS: Eosinophils % 1 % (0-3); Lymphocytes % 13 % (10-50); Monocytes % 2 % (2-9); Neutrophils % 84 % (42-76); Platelet Estimate Slight Increase; RBC Morphology Normal; Total Cells Counted 100
[2023-12-16 18:08] LABS: Alanine Aminotransferase 20 U/L (12-78); Anion Gap 10.1 mEq/L (5-15); Aspartate Amino Transferase 26 U/L (17-59); Blood Urea Nitrogen 8 mg/dl (9-20); Calcium 9.4 mg/dl (8.4-10.2); Carbon Dioxide 26 mmol/L (22.0-30.0); Chloride 107 mmol/L (98-107); Estimated Glomerular Filt Rate 84 ml/min (>60); GFR (African American) 102 ML/MIN (>60); Glucose 100 mg/dl (74-100); Potassium 4.1 mmoL/L (3.5-5.1); Sodium 139 mmol/L (136-145)
[2023-12-18 12:52] LABS: HIV Screen 4th Generation wRfx Non Reactive; Hepatitis B Surface Antigen Negative
[2023-12-18 12:53] LABS: Hepatitis B Core Antibody, IgM Negative; Hepatitis C Antibody Non Reactive
[2023-12-18 19:41] LABS: QuantiFERON-TB Gold Plus Negative (Negative)
== END 2023-12-16 23:59 ==
PROVIDERS: PCP Nurse Practitioner Family; Visit Provider Dermatology
DX: L73.2 Hidradenitis suppurativa (principal)
CPT/HCPCS: 36415; 71046; 80048; 84450; 84460; 85007; 85025; 86480; 86703; 87340; 87380; G0432

== ENCOUNTER 2023-12-29 16:29 | Outpatient (CLI) | payer OTHER, SELFPAY ==
[2023-12-29 16:51] LABS: Basophils # 0.2 K/mm3 (0-0.2); Basophils % 0.9 % (0.1-2.0); Eosinophils # 0.3 K/mm3 (0.0-0.4); Eosinophils % 1.7 % (0.1-12.0); Hematocrit 39.3 % (42.0-52.0); Hemoglobin 12.6 g/dL (14.1-18.0); Lymphocytes # 2.3 K/mm3 (0.7-4.5); Lymphocytes % 12.1 % (10-50); Mean Corpuscular Hemoglobin 26.3 pg (27.0-31.2); Mean Corpuscular Volume 81.9 fl (80-94); Mean Platelet Volume 7.7 fl (7.4-10.4); Monocytes # 0.8 K/mm3 (0.1-1.0); Neutrophils # 15.3 K/mm3 (1.8-7.8); Neutrophils % 81.3 % (37.0-80.0); Platelet Count 625 K/mm3 (142-424); Red Blood Count 4.79 M/mm3 (4.60-6.20); Red Cell Distribution Width 15.3 % (11.5-17.5); White Blood Count 18.9 K/mm3 (4.8-10.8)
[2023-12-29 16:53] LABS: MANUAL DIFFERENTIAL MANUAL DIFFERENTIAL (MANUAL DIFF)
[2023-12-29 17:25] LABS: Eosinophils % 1 % (0-3); Hypochromasia 1+; Lymphocytes % 14 % (10-50); Microcytosis 1+; Monocytes % 3 % (2-9); Neutrophils % 82 % (42-76); Platelet Estimate Normal; Total Cells Counted 100
[2023-12-31 07:13] LABS: Cytoplasmic (C-ANCA) <1:20 titer (Neg:<1:20); Perinuclear (P-ANCA) <1:20 titer (Neg:<1:20)
[2024-01-04 16:59] LABS: Saccharomyces cerevisiae, IgA 102.3 Units (0.0-24.9); Saccharomyces cerevisiae, IgG 32.9 Units (0.0-24.9)
== END 2023-12-29 23:59 ==
PROVIDERS: PCP Nurse Practitioner Family; Visit Provider Physician Assistant Medical
DX: L73.2 Hidradenitis suppurativa (principal)
CPT/HCPCS: 36415; 85007; 85025; 86256; 86671

== ENCOUNTER 2024-01-10 08:09 | Outpatient (CLI) | payer OTHER, SELFPAY ==
--- NOTE | 2024-01-10 08:10 | CT_ITS ---
FINAL REPORT TECHNIQUE: After the administration of oral and intravenous contrast, axial images were obtained through the abdomen and pelvis by computed tomography. The study was performed with techniques to keep radiation dose as low as reasonably achievable, (ALARA). Individual dose reduction techniques using automated exposure control or adjustment of mA and/or kV according to the patient's size were employed. CLINICAL HISTORY: R/O Brando s gangrene, large scrotum COMPARISON: Prior ultrasound of the scrotum dated 11/24/2023 FINDINGS: Abdomen: The lung bases are clear. There is a benign-appearing cyst present in the lateral segment of the left lobe of the liver. The gallbladder is present. The spleen, pancreas, and adrenals appear unremarkable. There is a 1.2 cm stone present in the right renal pelvis, as well as other small stones in the right renal calyces. No evidence of obstruction is seen. There are several low-attenuation areas in the superior aspect of the right kidney measuring up to 1.9 cm in size, likely complex cysts. There are similar-appearing but smaller lesions in the left kidney. The aorta is normal in caliber. There is no free fluid or adenopathy. Pelvis: The appendix is not identified. There are small calcified phleboliths present in the pelvis. The urinary bladder is incompletely distended. There is no free fluid or adenopathy. There is marked inflammation in the scrotum, and the scrotal wall, with extensive soft tissue edema. There is extensive edema in the right lateral scrotal wall, with a collection measuring 2.0 cm in greatest diameter, image #138 of series 2, that may represent an abscess. There is also in the left posterior scrotal wall a 1.7 cm hypoechoic mass, best seen on image #162 of series 2, that may also represent an abscess. There are significantly enlarged inguinal lymph nodes, which measure up to 3.8 cm. There is no definite intrapelvic extension identified. IMPRESSION: Probable abscesses in the scrotal wall, as described, without definite intrapelvic extension. There is a 1.2 cm stone in the right renal pelvis, with multiple other smaller nonobstructing stones in the calyces. Several low-attenuation areas in both kidneys that may represent complex cysts. There is no associated inflammatory change to suggest abscesses. Follow-up imaging is recommended. Reviewed, Interpreted and Dictated by García Iyer MD Transcribed by Floresita Kaur Authenticated and [facility]
[2024-01-10] MEDS: SODIUM CHLORIDE 0.9% 10ML SYR (RAD ONLY) 10 ML IV (08:37)
[2024-01-10] MEDS: IOPAMIDOL-370 (76%);100ML BOTTLE 75 ML IV (08:37)
== END 2024-01-10 23:59 ==
LOC: RAD 08:10
PROVIDERS: PCP Nurse Practitioner Family; Visit Provider Nurse Practitioner Family
DX: N50.819 Testicular pain, unspecified (principal); N50.89 Other specified disorders of the male genital organs
CPT/HCPCS: 74177; Q9967

== ENCOUNTER 2024-01-24 15:38 | Outpatient (CLI) | payer OTHER, SELFPAY ==
[2024-01-24 16:14] LABS: Basophils # 0.1 K/mm3 (0-0.2); Basophils % 0.7 % (0.1-2.0); Eosinophils # 0.3 K/mm3 (0.0-0.4); Eosinophils % 1.6 % (0.1-12.0); Hematocrit 38.4 % (42.0-52.0); Hemoglobin 12.3 g/dL (14.1-18.0); Lymphocytes # 2.1 K/mm3 (0.7-4.5); Lymphocytes % 11.2 % (10-50); Mean Corpuscular Hemoglobin 25.9 pg (27.0-31.2); Mean Corpuscular Volume 81.1 fl (80-94); Mean Platelet Volume 7.6 fl (7.4-10.4); Monocytes % 5.3 % (1.7-9.3); Neutrophils # 15.3 K/mm3 (1.8-7.8); Neutrophils % 81.3 % (37.0-80.0); Platelet Count 654 K/mm3 (142-424); Red Blood Count 4.74 M/mm3 (4.60-6.20); Red Cell Distribution Width 15.5 % (11.5-17.5); White Blood Count 18.8 K/mm3 (4.8-10.8)
[2024-01-24 16:16] LABS: MANUAL DIFFERENTIAL MANUAL DIFFERENTIAL (MANUAL DIFF)
[2024-01-24 17:24] LABS: Eosinophils % 1 % (0-3); Lymphocytes % 9 % (10-50); Monocytes % 7 % (2-9); Neutrophils % 83 % (42-76); Total Cells Counted 100
[2024-01-24 17:25] LABS: Platelet Estimate Moderate Increase; RBC Morphology Normal
== END 2024-01-24 23:59 | disposition home or self-care (01) ==
LOC: LAB 15:39
PROVIDERS: PCP Nurse Practitioner Family; Visit Provider Physician Assistant Medical
DX: L73.2 Hidradenitis suppurativa (principal)
CPT/HCPCS: 36415; 85007; 85025

== ENCOUNTER 2024-02-15 16:31 | Outpatient (CLI) | payer OTHER, SELFPAY ==
[2024-02-15 17:17] LABS: Basophils # 0.1 K/mm3 (0-0.2); Basophils % 0.6 % (0.1-2.0); Eosinophils # 0.4 K/mm3 (0.0-0.4); Eosinophils % 2.5 % (0.1-12.0); Hematocrit 37.5 % (42.0-52.0); Lymphocytes # 1.9 K/mm3 (0.7-4.5); Mean Corpuscular HGB Conc 32.1 g/dL (31.8-35.4); Mean Corpuscular Hemoglobin 25.4 pg (27.0-31.2); Mean Corpuscular Volume 79.3 fl (80-94); Mean Platelet Volume 7.8 fl (7.4-10.4); Monocytes # 0.9 K/mm3 (0.1-1.0); Neutrophils # 13.9 K/mm3 (1.8-7.8); Neutrophils % 80.9 % (37.0-80.0); Red Blood Count 4.72 M/mm3 (4.60-6.20); Red Cell Distribution Width 15.5 % (11.5-17.5); White Blood Count 17.2 K/mm3 (4.8-10.8)
[2024-02-15 17:44] LABS: MANUAL DIFFERENTIAL MANUAL DIFFERENTIAL (MANUAL DIFF); Platelet Count 743 K/mm3 (142-424)
[2024-02-15 18:12] LABS: Eosinophils % 2 % (0-3); Lymphocytes % 7 % (10-50); Monocytes % 5 % (2-9); Neutrophils % 85 % (42-76); Total Cells Counted 100
[2024-02-15 18:14] LABS: Hypochromasia 1+; Microcytosis 1+
[2024-02-15 18:16] LABS: Platelet Estimate Moderate Increase
== END 2024-02-15 23:59 | disposition home or self-care (01) ==
LOC: LAB 16:32
PROVIDERS: PCP Nurse Practitioner Family; Visit Provider Physician Assistant Medical
DX: L73.2 Hidradenitis suppurativa (principal)
CPT/HCPCS: 36415; 85007; 85025

== ENCOUNTER 2024-05-30 16:07 | Outpatient (CLI) | payer OTHER, SELFPAY ==
[2024-05-30 17:18] LABS: Basophils # 0.1 K/mm3 (0-0.2); Basophils % 0.7 % (0.1-2.0); Eosinophils # 0.3 K/mm3 (0.0-0.4); Eosinophils % 2.1 % (0.1-12.0); Hematocrit 37.8 % (42.0-52.0); Lymphocytes # 2.5 K/mm3 (0.7-4.5); Lymphocytes % 16.1 % (10-50); Mean Corpuscular HGB Conc 31.8 g/dL (31.8-35.4); Mean Corpuscular Hemoglobin 25.8 pg (27.0-31.2); Mean Platelet Volume 7.7 fl (7.4-10.4); Monocytes # 0.8 K/mm3 (0.1-1.0); Monocytes % 5.2 % (1.7-9.3); Neutrophils # 11.6 K/mm3 (1.8-7.8); Neutrophils % 75.9 % (37.0-80.0); Platelet Count 550 K/mm3 (142-424); Red Blood Count 4.66 M/mm3 (4.60-6.20); Red Cell Distribution Width 17.4 % (11.5-17.5); White Blood Count 15.2 K/mm3 (4.8-10.8)
[2024-05-30 17:26] LABS: MANUAL DIFFERENTIAL MANUAL DIFFERENTIAL (MANUAL DIFF)
[2024-05-30 17:37] LABS: C-Reactive Protein 21.4 mg/L (0-4)
[2024-05-30 18:24] LABS: Eosinophils % 4 % (0-3); Lymphocytes % 23 % (10-50); Monocytes % 6 % (2-9); Neutrophils % 66 % (42-76); Total Cells Counted 100
[2024-05-30 18:25] LABS: RBC Morphology Normal
[2024-05-30 18:26] LABS: Platelet Estimate Moderate Increase
== END 2024-05-30 23:59 | disposition home or self-care (01) ==
LOC: LAB 16:08
PROVIDERS: Visit Provider Physician Assistant Medical
DX: L73.2 Hidradenitis suppurativa (principal)
CPT/HCPCS: 36415; 85007; 85025; 85027; 86140

== ENCOUNTER 2024-06-13 13:04 | Outpatient (CLI) | payer OTHER, SELFPAY ==
[2024-06-13 13:21] LABS: Basophils # 0.1 K/mm3 (0-0.2); Basophils % 0.6 % (0.1-2.0); Eosinophils # 0.1 K/mm3 (0.0-0.4); Eosinophils % 0.9 % (0.1-12.0); Hematocrit 42.4 % (42.0-52.0); Hemoglobin 13.2 g/dL (14.1-18.0); Lymphocytes # 2.2 K/mm3 (0.7-4.5); Lymphocytes % 14.9 % (10-50); Mean Corpuscular HGB Conc 31.1 g/dL (31.8-35.4); Mean Corpuscular Hemoglobin 25.8 pg (27.0-31.2); Mean Corpuscular Volume 82.8 fl (80-94); Mean Platelet Volume 6.6 fl (7.4-10.4); Monocytes # 0.8 K/mm3 (0.1-1.0); Monocytes % 5.3 % (1.7-9.3); Neutrophils # 11.4 K/mm3 (1.8-7.8); Neutrophils % 78.3 % (37.0-80.0); Platelet Count 554 K/mm3 (142-424); Red Blood Count 5.12 M/mm3 (4.60-6.20); Red Cell Distribution Width 16.8 % (11.5-17.5); White Blood Count 14.6 K/mm3 (4.8-10.8)
[2024-06-13 13:57] LABS: C-Reactive Protein 34.4 mg/L (0-4)
== END 2024-06-13 23:59 | disposition home or self-care (01) ==
LOC: LAB 13:07
PROVIDERS: Visit Provider Physician Assistant Medical
DX: L73.2 Hidradenitis suppurativa (principal)
CPT/HCPCS: 36415; 85025; 86140

== ENCOUNTER 2024-06-26 16:33 | Outpatient (CLI) | payer OTHER, SELFPAY ==
[2024-06-26 17:13] LABS: Basophils # 0.1 K/mm3 (0-0.2); Basophils % 0.6 % (0.1-2.0); Eosinophils # 0.3 K/mm3 (0.0-0.4); Eosinophils % 1.8 % (0.1-12.0); Hematocrit 39.2 % (42.0-52.0); Hemoglobin 12.3 g/dL (14.1-18.0); Lymphocytes # 2.5 K/mm3 (0.7-4.5); Mean Corpuscular HGB Conc 31.4 g/dL (31.8-35.4); Mean Corpuscular Hemoglobin 25.9 pg (27.0-31.2); Mean Corpuscular Volume 82.6 fl (80-94); Mean Platelet Volume 7.6 fl (7.4-10.4); Monocytes # 0.8 K/mm3 (0.1-1.0); Neutrophils % 76.6 % (37.0-80.0); Platelet Count 665 K/mm3 (142-424); Red Blood Count 4.74 M/mm3 (4.60-6.20); White Blood Count 15.6 K/mm3 (4.8-10.8)
[2024-06-26 18:17] LABS: MANUAL DIFFERENTIAL MANUAL DIFFERENTIAL (MANUAL DIFF)
[2024-06-26 18:22] LABS: Lymphocytes % 11 % (10-50); Monocytes % 2 % (2-9); Neutrophils % 87 % (42-76); Total Cells Counted 100
[2024-06-26 18:23] LABS: Platelet Estimate Moderate Increase
[2024-06-26 18:24] LABS: Hypochromasia 1+
[2024-06-26 18:42] LABS: C-Reactive Protein 50.5 mg/L (0-4)
== END 2024-06-26 23:59 | disposition home or self-care (01) ==
LOC: LAB 16:34
PROVIDERS: Physician Assistant Medical; Visit Provider Dermatology
DX: L73.2 Hidradenitis suppurativa (principal)
CPT/HCPCS: 85007; 85025; 85027; 86140

== ENCOUNTER 2024-07-11 16:43 | Outpatient (CLI) | payer OTHER, SELFPAY ==
[2024-07-11 17:42] LABS: Basophils # 0.1 K/mm3 (0-0.2); Basophils % 0.8 % (0.1-2.0); Eosinophils # 0.4 K/mm3 (0.0-0.4); Eosinophils % 2.7 % (0.1-12.0); Hematocrit 34.6 % (42.0-52.0); Hemoglobin 11.3 g/dL (14.1-18.0); Lymphocytes # 2.4 K/mm3 (0.7-4.5); Lymphocytes % 17.8 % (10-50); Mean Corpuscular HGB Conc 32.6 g/dL (31.8-35.4); Mean Corpuscular Hemoglobin 25.4 pg (27.0-31.2); Mean Corpuscular Volume 77.9 fl (80-94); Mean Platelet Volume 7.1 fl (7.4-10.4); Monocytes # 0.9 K/mm3 (0.1-1.0); Monocytes % 6.8 % (1.7-9.3); Neutrophils # 9.6 K/mm3 (1.8-7.8); Neutrophils % 71.9 % (37.0-80.0); Platelet Count 577 K/mm3 (142-424); Red Blood Count 4.45 M/mm3 (4.60-6.20); Red Cell Distribution Width 16.3 % (11.5-17.5); White Blood Count 13.3 K/mm3 (4.8-10.8)
[2024-07-11 17:56] LABS: C-Reactive Protein 45.6 mg/L (0-4)
== END 2024-07-11 23:59 | disposition home or self-care (01) ==
LOC: LAB 16:44
PROVIDERS: PCP Family Medicine; Visit Provider Dermatology
DX: L73.2 Hidradenitis suppurativa (principal)
CPT/HCPCS: 36415; 85025; 86140

== ENCOUNTER 2024-07-25 16:40 | Outpatient (CLI) | payer OTHER, SELFPAY ==
[2024-07-25 17:02] LABS: Basophils # 0.1 K/mm3 (0-0.2); Basophils % 0.7 % (0.1-2.0); Eosinophils # 0.4 K/mm3 (0.0-0.4); Eosinophils % 2.9 % (0.1-12.0); Hematocrit 36.6 % (42.0-52.0); Hemoglobin 12.1 g/dL (14.1-18.0); Lymphocytes # 2.5 K/mm3 (0.7-4.5); Lymphocytes % 17.6 % (10-50); Mean Corpuscular HGB Conc 33.1 g/dL (31.8-35.4); Mean Corpuscular Hemoglobin 25.8 pg (27.0-31.2); Mean Corpuscular Volume 78.2 fl (80-94); Monocytes # 0.8 K/mm3 (0.1-1.0); Monocytes % 5.7 % (1.7-9.3); Neutrophils # 10.2 K/mm3 (1.8-7.8); Neutrophils % 73.1 % (37.0-80.0); Platelet Count 553 K/mm3 (142-424); Red Blood Count 4.68 M/mm3 (4.60-6.20); Red Cell Distribution Width 16.7 % (11.5-17.5)
[2024-07-25 17:45] LABS: C-Reactive Protein 38.6 mg/L (0-4)
== END 2024-07-25 23:59 | disposition home or self-care (01) ==
LOC: LAB 16:42
PROVIDERS: Physician Assistant Medical; PCP Family Medicine; Visit Provider Dermatology
DX: L73.2 Hidradenitis suppurativa (principal)
CPT/HCPCS: 36415; 85025; 86140

== ENCOUNTER 2024-12-18 11:24 | Outpatient (CLI) | payer OTHER, SELFPAY ==
[2024-12-18 12:03] LABS: Basophils # 0.1 K/mm3 (0-0.2); Basophils % 0.6 % (0.1-2.0); Eosinophils # 0.2 K/mm3 (0.0-0.4); Eosinophils % 1.4 % (0.1-12.0); Hematocrit 35.4 % (42.0-52.0); Lymphocytes # 1.6 K/mm3 (0.7-4.5); Lymphocytes % 11.7 % (10-50); Mean Corpuscular HGB Conc 31.1 g/dL (31.8-35.4); Mean Corpuscular Hemoglobin 24.3 pg (27.0-31.2); Mean Corpuscular Volume 78.1 fl (80-94); Mean Platelet Volume 8.8 fl (7.4-10.4); Monocytes # 0.7 K/mm3 (0.1-1.0); Monocytes % 5.3 % (1.7-9.3); Neutrophils # 11.2 K/mm3 (1.8-7.8); Neutrophils % 80.6 % (37.0-80.0); Platelet Count 582 K/mm3 (142-424); Red Blood Count 4.53 M/mm3 (4.60-6.20); Red Cell Distribution Width 15.4 % (11.5-17.5); White Blood Count 13.9 K/mm3 (4.8-10.8)
[2024-12-18 12:31] LABS: Alanine Aminotransferase 22 U/L (12-78); Albumin Level 3.7 g/dl (3.5-5.0); Albumin/Globulin Ratio 0.9 (1.1-1.8); Alkaline Phosphatase 82 U/L (38-126); Anion Gap 3.8 mEq/L (5-15); Aspartate Amino Transferase 27 U/L (17-59); Bilirubin,Total 0.4 mg/dl (0.2-1.3); Blood Urea Nitrogen 9 mg/dl (9-20); Calcium 10.1 mg/dl (8.4-10.2); Carbon Dioxide 34 mmol/L (22.0-30.0); Chloride 107 mmol/L (98-107); Estimated Glomerular Filt Rate 84 ml/min (>60); GFR (African American) 101 ML/MIN (>60); Globulin 4.3 g/dL (1.3-3.2); Glucose 120 mg/dl (74-100); Potassium 3.8 mmoL/L (3.5-5.1); Sodium 141 mmol/L (136-145)
[2024-12-19 12:11] LABS: C-Reactive Protein, Cardiac 40.61 mg/L (0.00-3.00)
[2024-12-20 17:14] LABS: QuantiFERON-TB Gold Plus Negative (Negative)
== END 2024-12-18 23:59 | disposition home or self-care (01) ==
LOC: LAB 11:26
PROVIDERS: Visit Provider Physician Assistant Medical
DX: L73.2 Hidradenitis suppurativa (principal); Z79.899 Other long term (current) drug therapy
CPT/HCPCS: 36415; 80053; 85025; 86141; 86480

== ENCOUNTER 2025-05-16 09:05 | Outpatient (CLI) | payer OTHER, SELFPAY ==
[2025-05-16] VITALS (7 sets, daily range): BP systolic 120–131; BP diastolic 65–72; PULSE 69–74; RESP 20; TEMP 36.7; O2SAT 98
--- OUTSIDE RECORDS SUMMARY | 2025-05-16 09:10 | XMS_ITS | Clinical Summary ---
[facility] Organization [facility] Address [address] [place] [address] Care Team Providers Care Applications Project Manager Name Role Phone Rossy Barr Primary Care Provider + Allergies Active Allergy Reactions Criticality Noted Date Comments Cefaclor Rash Low 05/22/2022 Cefprozil Rash Low 05/22/2022 Medications Hyrimoz-Crohns/ UC Starter 80 MG/0.8ML solution auto-injector Inject 80 mg under the skin into the appropriate area as directed Every 14 (Fourteen) Days. 4 Active clindamycin (CLEOCIN T) 1 % lotion Apply 1 Application topically to the appropriate area as directed As Needed. 5 Active doxycycline (VIBRAMYCIN) 100 MG capsule Take 1 capsule by mouth 2 (Two) Times a Day. 5 Active fluticasone (FLONASE) 50 MCG/ACT nasal sprayIndication s:Postnasal drip Administer 1 spray into the nostril(s) as directed by provider Daily. 16 g 2 5 Active Active Problems Problem Noted Date Diagnosed Date Annual physical exam 10/10/2024 Assessment & Plan (10/10/2024 9:03 AM EST): Overall doing well. Preventative screening discussed. Immunizations reviewed, diet and exercise recommendations given. Postnasal drip 10/10/2024 Assessment & Plan (10/10/2024 9:03 AM EST): Trial of Flonase Elevated Saccharomyces cerevisiae antibody level 10/10/2024 Assessment & Plan (10/10/2024 9:04 AM EST): Referral for colonoscopy pending Hidradenitis suppurativa 07/03/2024 Assessment & Plan (10/10/2024 9:02 AM EST): Following regularly with dermatology. Continue regimen per their recommendation. Assessment & Plan (07/03/2024 3:47 PM EDT): Continue current regimen per dermatology. Will follow along laboratory evaluation. Class 1 obesity due to exces s calories without serious comorbidity with body mass index (BMI) of 33.0 to 33.9 in adult 07/03/2024 Assessment & Plan (10/10/2024 9:03 AM EST): Patient's (Body mass index is 33.02 kg/m .) indicates that they are obese (BMI >30) with health conditions that include none . Weight is worsening. BMI is above average; BMI management plan is completed. We discussed portion control, increasing exercise, and Information on healthy weight added to patient's after visit summary. Assessment & Plan (07/03/2024 3:47 PM EDT): Patient's (Body mass index is 31.5 kg/m .) indicates that they are obese (BMI >30) with health conditions that include none . Weight is newly identified. BMI is above average; BMI management plan is completed. We discussed Information on healthy weight added to patient's after visit summary. Immunizations Immunization Administration Dates Next Due Hepatitis B Adolescent High Risk Infant 10/10/18 99,05/10/1998,04/08/1998 MMR 04/08/1998 Family History Medical History Relation Name Comments Cancer Maternal Aunt Susie and Fanny Cancer Maternal Uncle Bhupinder. Anxiety disorder Mother Esther burrows Relation Name Status Comments Maternal Aunt Susie and Fanny Maternal Uncle Bhupinder. Mother Esther burrows Social History Tobacco Use Types Packs/Day Years Used Date Smoking Tobacco: Former Cigarettes 0.5 20.8 S tarted: 07/21/2014 Passive Smoke Exposure: Never Smokeless Tobacco: Never Alcohol Use Standard Drinks/Week Comments Never 0 (1 standard drink = 0.6 oz pur e alcohol) PHQ-2 Answer Date Recorded Retired PHQ-9: Brief Depression Severity Measure Score 0 07/03/2024 Sex and Gender Information Value Date Recorded Sex Assigned at Male 07/02/2024 3:57 PM EDT Legal Sex Male 8:37 PM EDT Gender Identity Male 07/02/2024 3:57 PM EDT Sexual Orientation Straight 07/02/2024 3: 57 PM EDT Last Filed Vital Signs Vital Sign Reading Time Taken Comments Blood Pressure 148/100 10/10/2024 8:24 AM EST Pulse 95 10/10/2024 8:24 AM EST Temperature - - Respiratory Rate - - Oxygen Saturation 100% 10/10/2024 8:24 AM EST Inhaled Oxygen Concentration - - Weight 120 kg (264 lb 3.2 oz) 10/10/2024 8:24 AM EST Height 190.5 cm (6' 3 ) 10/10/2024 8:24 AM EST Body Mass Index 33.02 10/10/2024 8:24 AM EST Plan of Treatment Health Maintenance Due Date Last Done Comments COVID-19 Vaccine (2023-2 5 season) 2024 09/29/2021, 03/23/2021, 03/02/2021 INFLUENZA VACCINE 06/27/2025 ANNUAL PHYSICAL 10/10/2025 10/10/2024 TDAP/TD VACCINES (1 - Tdap) 10/10/2025 Postponed from 2005 (Patient Refused) HEPATITIS C SCREENING Completed 01/31/2024 (Patient-Reported (Performed Externally)) Pneumococcal Vaccine 0-49 Aged Out No longer eligible based on patient's age to complete this topic Insurance AETNA PREFERRED ALL STATES Care Teams Applications Project Manager Relationship Specialty Start Date End Date Rossy Barr DO [address] [place] [address] PCP - General Family Medicine 07/03/24
--- OUTSIDE RECORDS SUMMARY | 2025-05-16 09:10 | XMS_ITS | Encounter Summary ---
Author Organization Healthcare Address [address] [place] [address] Care Team Providers Care Engineering Manager Name Role Phone Unavailable Primary Care Provider Unavailabl e Encounter Details Date Type Department Care Team (Late st Contact Info) Description 05/10/2025 Telephone [facility] [address] [place] [address] Kristie Giraldo PA [address] [place] [address] Social History Tobacco Use Types Packs/Day Years Used Date Smoking Tobacco: Never Assessed Sex and Gender Information Value Date Recorded Sex Assigned at Not on file Legal Sex Male 2:08 PM EDT Gender Identity Not on file Sexual Orientation Not on file documented as of this encounter Miscellaneous Notes * Telephone Encounter - Rita Ward - 05/10/2025 1:42 PM EDT Clinical Concern/Question Reason for Call: Per [facility], states patient needs order for his Entivyo F# [phone] Best contact number: Other: [phone] Optimal time of day to reach caller: ANYTIME Additional comments/information from caller: Of note, I do not show this patient having seen in this clinic? Note: Please do not reply to this message. Follow-up communication and further actions as a result of this message need to be communicated with the patient directly, if the patient is not active onMyChart. If the patient is active on MyChart, they will receive notification of the communication/outcome via MyChart. documented in this encounter Plan of Treatment Not on file documented as of this encounter Visit Diagnoses Not on filedocumented in this encounter
--- OUTSIDE RECORDS SUMMARY | 2025-05-16 09:10 | XMS_ITS | Clinical Summary ---
Author Organization Healthcare Address [address] [id number] Care Team Providers Care Director Emergency Name Role Phone Unavailable Primary Care Provider Unavailabl e Encounters Date Type Department Care Team Description 05/10/2025 Telephone [facility] [address], [address] [place] [address] Kristie Giraldo PA from Last 3 Months Social History Tobacco Use Types Packs/Day Years Used Date Smoking Tobacco: Never Assessed Sex and Gender Information Value Date Recorded Sex Assigned at Not on file Legal Sex Male 2:08 PM EDT Gender Identity Not on file Sexual Orientation Not on file Plan of Treatment Not on file Insurance AETNA
[2025-05-16] MEDS: 0.9 % SODIUM CHLORIDE 50 ML 25 ML IV (09:18)
[2025-05-16] MEDS: INFLIXIMAB IV (09:49)
[2025-05-16] MEDS: SODIUM CHLORIDE 0.9% IV (09:49)
== END 2025-05-16 12:25 | disposition home or self-care (01) ==
LOC: INF 09:07
PROVIDERS: PCP Family Medicine; Visit Provider Dermatology
DX: L73.2 Hidradenitis suppurativa (principal)
CPT/HCPCS: 96413; 96415; J1745; J7050

== ENCOUNTER 2025-06-01 07:59 | Outpatient (CLI) | payer OTHER, SELFPAY ==
--- OUTSIDE RECORDS SUMMARY | 2025-06-01 08:03 | XMS_ITS | Clinical Summary ---
Author Organization [employer] ([place], [place], [place], [place]) Address [address] [place] [address] Care Team Providers Care Deployment Technician Name Role Phone Unavailable Primary Care Provider Unavailabl e Allergies Active Allergy Reactions Criticality Noted Date Comments Cefaclor 05/22/2022 Cefprozil 05/22/2022 Medications cholecalciferol , vitamin D3, 1,250 mcg (50,000 unit) capsule Take 1 capsule (50,000 Units total) by mouth once a week. 11/05/2023 Active mINOCYCLine (MINOCIN,DYNACI N) 100 MG capsule Take 1 capsule (100 mg total) by mouth 2 (two) times daily. Active Active Problems Problem Noted Date Diagnosed Date Epididymitis 01/10/2024 01/10/2024 Hematuria 01/10/2024 01/10/2024 Kidney stone on right side 01/10/202401/09 Scrotal edema 01/10/2024 01/10/2024 UTI (urinary tract infection) 01/10/2024 Family History Medical History Relation Name Comments No Known Problem Father No Known Problem Mother Relation Name Status Comments Father Mother Social History Tobacco Use Types Packs/Day Years Used Date Smoking Tobacco: Never Passive Smoke Exposure: Never Smokeless Tobacco: Never Tobacco Cessation:Counseling Given: Not Answered Alcohol Use Standard Drinks/Week Comments Not Currently 0 (1 standard drink = 0.6 oz pur e alcohol) Food Insecurity Answer Date Recorded Food run out past 12 months Not on file 12/26 Food did not last past 12 months Not on file 01/07/2024 Employment Answer Date Recorded Help finding and keeping a job Not on file 0 01/07/2024 Family and Community Support Answer Ady e Recorded Help with Day to Day Activities Not on file 01/07/2024 Feeling Lonely or Isolated Not on file 01/06 Educational Attainment Answer Date Kane rded Speak language other than Andorran at home Not on file 01/07/2024 Want help with school or training Not on file 01/07/2024 Substance Use Answer Date Recorded Used prescription meds for non-medical reasons N ot on file 01/07/2024 Used illegal drugs past 12 months Not on file 01/07/2024 Sex and Gender Information Value Date Recorded Sex Assigned at Not on file Legal Sex Male 10:46 AM CDT Gender Identity Not on file Sexual Orientation Not on file Last Filed Vital Signs Vital Sign Reading Time Taken Comments Blood Pressure 156/88 01/10/2024 1:21 PM EDT Pulse 92 01/10/2024 1:21 PM EDT Temperature 37.7 C (99.8 F) 01/10/2024 1:21 PM EDT Respiratory Rate - - Oxygen Saturation - - Inhaled Oxygen Concentration - - Weight 108 kg (238 lb) 01/10/2024 1:21 PM EDT Height 190.5 cm (6' 3 ) 01/10/2024 1:21 PM EDT Body Mass Index 29.75 01/10/2024 1:21 PM EDT Plan of Treatment Health Maintenance Due Date Last Done Comments Depression Screening (12+) 1998 HIV Screening 2001 Hepatitis C Screening 2004 DTAP/TDAP/TD VACCINES (1 - Tdap) 2005 Lipid Panel 2021 COVID-19 VACCINE (4 - 2023-2 5 season) 2024 09/29/2021, 03/23/2021, 03/02/2021 Tobacco Cessation Counseling and Screening (12+) 01/09/2025 01/10/2024 Influenza Vaccine (#1) 2025 Pneumococcal Vaccine: 0-49 Years Aged Out No longer eligible b ased on patient's age to complete this topic Insurance AETNA
--- OUTSIDE RECORDS SUMMARY | 2025-06-01 08:03 | XMS_ITS | Clinical Summary ---
Author Organization Healthcare Address [address] [place] [address] Care Team Providers Care Orchard Sprayer Name Role Phone Unavailable Primary Care Provider Unavailabl e Encounters Date Type Department Care Team Description 05/10/2025 Telephone [place] [facility] [address], [address] [place] [address] Kristie Giraldo PA from Last 3 Months Social History Tobacco Use Types Packs/Day Years Used Date Smoking Tobacco: Never Assessed Sex and Gender Information Value Date Recorded Sex Assigned at Not on file Legal Sex Male 2:08 PM EDT Gender Identity Not on file Sexual Orientation Not on file Plan of Treatment Health Maintenance Due Date Last Done Comments [facility]-Depression Screening 1986 [facility]-HIV Screening 1986 [facility]-Hepatitis C Screening 1986 [facility]-Infant/Child/Adol SDOH Screenings 1986 [facility]-Varicella Vaccines (1 of 2 - 13+ 2-dose series) 12/03/1999 [facility]- SDOH Screenings 2004 [facility]-Adult SDOH Screenings 2004 [facility]-DTaP,Tdap,and Td Vaccine s (1 - Tdap) 2005 [facility]-Hepatitis B Vaccines (1 of 3 - 19+ 3-dose series) 2005 HPV Vaccines (1 - 3-dose SCD M series) 2013 [id number] Vaccine (1 - 20 24-25 season) 2025 [facility]-Influenza Vaccine (#1) 2025 [facility]-Zoster Vaccines (1 of 2) 2036 [facility]-HIB Vaccines Aged Out No longer e ligible based on patient's age to complete this topic [facility]-Hepatitis A Vaccines Aged Out No longer eligible based on patient's age to complete this topic [facility]-IPV Vaccines Aged Out No longer e ligible based on patient's age to complete this topic [facility]-Pneumococcal Vaccine: Pediatrics (0 to 5 Years) and At-Risk Patients (6 to 49 Years) Aged Out No long er eligible based on patient's age to complete this topic [facility]-Rotavirus Vaccines Aged Out No lo nger eligible based on patient's age to complete this topic Insurance AETNA
--- OUTSIDE RECORDS SUMMARY | 2025-06-01 08:03 | XMS_ITS | Referral Summary ---
Author Organization [employer] ([place], [place], [place], [place]) Address [address] [place] [address] Care Team Providers Care Debridging Machine Operator Name Role Phone Unavailable Primary Care Provider [...] 01/10/2024 01/10/2024 UTI (urinary tract infection) 01/10/2024 Social History Tobacco Use Types Packs/Day Years [...] Date Kane rded Speak language other than [place] Islander at home Not on file 01/07/2024 Want [...] 01/10/2024 1:21 PM EDT Plan of Treatment Not on file Insurance AETNA
--- OUTSIDE RECORDS SUMMARY | 2025-06-01 08:03 | XMS_ITS | Clinical Summary ---
[facility] Address [address] [place] [address] Care Team Providers Care Asw Specialist Name Role Phone Rossy Barr Primary Care [...] Next Due Hepatitis B Adolescent High Risk 10/10/18 99,05/10/1998,04/08/1998 MMR 04/08/1998 Family History Medical History Relation Name Comments Cancer Maternal Aunt Susie and Fanny Cancer Maternal Uncle Bhupinder. Anxiety disorder Mother Esther burrows Relation Name Status Comments Maternal Aunt Susie and Fanny Maternal Uncle Bhupinder. Mother Esther burrows Social History Tobacco Use Types Packs/Day Years Used Date Smoking Tobacco: Former Cigarettes 0.5 20.9 S tarted: 07/21/2014 Passive Smoke Exposure: Never [...] Insurance AETNA PREFERRED ALL STATES Care Teams Asw Specialist Relationship Specialty Start Date End Date Rossy Barr DO [address] [place] [address] PCP - General Family Medicine 07/03/24
--- OUTSIDE RECORDS SUMMARY | 2025-06-01 08:03 | XMS_ITS | Encounter Summary ---
Author Organization Healthcare Address [address] [place] [address] Care Team Providers Care Inbound Customer Service Representative Name Role Phone Unavailable Primary Care Provider Unavailabl e Encounter Details Date Type Department Care Team (Late st Contact Info) Description 05/10/2025 Telephone [facility] [address] [place] [address] Kristie Giraldo PA [address] [place] [address] Social History Tobacco Use Types Packs/Day Years Used Date Smoking Tobacco: Never Assessed Sex and Gender Information Value Date Recorded Sex Assigned at Not on file Legal Sex Male 2:08 PM EDT Gender Identity Not on file Sexual Orientation Not on file documented as of this encounter Miscellaneous Notes * Telephone Encounter - Ladonna Rea RN - 05/16/2025 11:38 AM EDT Reached out to clinic to let them know this is not an a patient of our clinic. Stated they figured out where patient was seen and reached out accordingly. * Telephone Encounter - Rita Ward - 05/10/2025 1:42 PM EDT Clinical Concern/Question Reason for Call: Per [facility], states patient needs order for his Entivyo F# [phone] Best contact number: Other: [phone] Optimal time of day to reach caller: [...] will receive notification of the communication/outcome via Draftstreett. documented in this encounter Plan of Treatment Not on file documented as of this encounter Visit Diagnoses Not on filedocumented in this encounter
--- OUTSIDE RECORDS SUMMARY | 2025-06-01 08:03 | XMS_ITS ---
Author Name Violet Green Address Unknown Organization [facility] Care Team Providers Care Java Developer Name Role Phone Unavailable Primary Care Physician Unavailab le History Of Present Illness This is a 39 year old male who is following up for hidradenitis suppurativa on the axillae and trunk. He was seen on February 22, 2025, at which time the following treatment recommendations were given: Plan: Given disease severity and lack of improvement on topical hibiclens, clindamycin, PO minocycline, adalimumab, and secukinumab. . . will stop secukinumab and transition to infliximab 5 mg per kg; note may need to increase pending response (possible up to 10 mg per kg). Since it may take time to approve the medication will start clindamycin 300 mg BID and rifampin 300 mg BID x 3 months.Will senda message to Biologic Coordinator to help initiate process given patient will receive infusions in [place], [place]. Today height and weight are 75 inches and 120 kg, respectively. He has a negative TB from November 2024 but will order hepatitis panel and repeat CMP/ CBC today. The following labs were ordered: CBC W Auto Diff Bld, Hep Func 2000 Pnl SerPl, Bas Metab 2000 Pnl SerPl, and HAV+HBV+HCV immunity +or expos Pnl SerPl and he was prescribed Clindamycin HCl 300 mg capsule (Take one pill by mouth twice daily) and Rifampin 300 mg capsule (Take one tablet twice daily). Milian Stage:: 3.0 - HurleyStage III: multiple interconnected sinus tracts and abscesses throughout an entire area.The patientpresents for further evaluation and management.Today the patient reports: Itch Numeric Rating Scale(NRS) 0.0.Interval History: Patient has completed once infusion and has the next one scheduled June 02 then two weeks later has his final starter dose then will transition to every 8 weeks. He has no side effects to the infusions and notices a big improvement in his HS. He still has small flares in the axillae and groin but much improved since previous appointment. He is still taking the Clindamycin 300mg BID and Rifampin BID. He needs refills if the antibiotic is continued. Allergies, Adverse Reactions, Alerts Substance RxNorm Reaction(s) Severity Status Start Da te Ceclor unspecified active Cefzil unspecified active Medications Medication Generic Name RxNorm Strength Strength Unit Route Dose Dose Form Frequency Date Started Date Ended Status Indication Sig infliximab inflixim ab 543764 100 mg Intrav enous recon soln 05/03/20 25 active infu se 5mg/ kg iv on week 0, 2, 6, then ever y 8 week s clindamycin HCl clindamy nhung HCl 439768 300 mg Oral capsu le 02/23/20 25 active Take one pill by mout h twic e edwin y rifampin rifampin 631171 300 mg Oral BID capsu le 02/23/20 25 active Take one tabl et twic e edwin y clindamycin phosphate clindamy nhung phosphat e active Cosentyx secukinu mab suspend ed Problems Problem Code Type Status Date of Diagnosis Da te of Resolution Hidradenitis suppurativa (disorder) 40728286(SNO MED) Diagnosis active 05/24/2025 Hidradenitis suppurativa (disorder) 22327858(SNO MED) Diagnosis active 02/22/2025 Hidradenitis suppurativa (disorder) 01355606(SNO MED) Diagnosis active 01/11/2025 History of skin disorder (situation) 902679717(SN OMED) Problem active Results No data Encounters Service provided at [facility], [address] [facility] [address], [place] [id number]. Office phone number is [phone]. Office fax number is [phone]. Encounter Diagnosis Location Date / Time Type Hidradenitis Suppurativa (L73.2) [facility] 05/24 12:00:00 [facility] [address] Reason For Referral No data Procedures Procedure Date Documentation of past medical history (p rocedure) Review Of Systems No Data Assessment 1.Hidradenitis Suppurativa, Status: Not At Treatment GoalPrescription Medication Management: Continue Regimen - Infliximab 5mg/kg (week 0, week 2, week 6, then every 8 weeks)Clindamycin 300mg BID andrifampin 300mg BID (refilled today).Hibiclens (OTC); Plan - Patient has had one of his loading infusions (one week ago) and reports significant improvement already. He was previously having pain in his joints in conjunction with his HS, which he reports improved after one infusion. Still taking clindamycin and rifampin and states he is not having any side effects. He otherwise feels well.Will seeback in early July after he has completed all of the loading doses. Recommend re-checking labs at this appointment. January 2025 labs showed a mild AST elevation (38) and mild anemia. Plan to discontinue clindamycin and rifampin if improved at this visit.Also recommend cautious monitoring of joint pain as this is not typically seen with HS.Reports that his testicular edema has improved also afterone infusion. Seeing urologist soon.;.Prescription: rifampin 300 mg capsule PO; clindamycin HCl 300mg capsule PO Plan of Care Future visit for 07/19/2025 - Follow up in 2 months Code Detail Instructions rifampin 300 mg capsule Take one 300mg capsule twice daily for HS. [id number] clindamycin HCl 300 mg capsule T froy one 300mg capsule twice daily for HS rifampin 300 mg capsule Take one tablet twice daily [id number] infliximab 100 mg intravenous so lution infuse 5mg/kg iv on week 0, 2, 6, then every 8 weeks [id number] clindamycin HCl 300 mg capsule T froy one pill by mouth twice daily rifampin 300 mg capsule Take one tablet twice daily Instructions No Data Social History Code Activity Start Date End Date 5841747 (SNOMED) Former smoker Sex male Sexual orientation Don't Know Gender identity Unspecified Vital Signs No data
--- OUTSIDE RECORDS SUMMARY | 2025-06-01 08:03 | XMS_ITS | Clinical Summary ---
Author Organization [facility] Address [address] [place] [address] Care Team Providers Care Value Analysis Coordinator Name Role Phone Unavailable Primary Care Provider Unavailabl e Social History Tobacco Use Types Packs/Day Years Used Date Smoking Tobacco: Never Assessed Sex and Gender Information Value Date Recorded Sex Assigned at Not on file Legal Sex Male 10:50 AM EDT Gender Identity Not on file Sexual Orientation Not on file Plan of Treatment Upcoming Encounters Date Type Department Care Team (Late st Contact Info) Description 06/08/2025 10:00 AM EDT [facility] [address] [address] Chano Perez MD [address] [place] [address], [address] [place] [address] Health Maintenance Due Date Last Done Comments HIV Screening 1986 Hepatitis C Screening 1986 Lipid Panel 1986 MMR Vaccines (1 of 1 - Standard series) 12/03/1987 Varicella Vaccines (1 of 2 - 13+ 2-dose series) 12/03/1999 Hepatitis B Screening 2004 DTaP/Tdap/Td Vaccines (1 - Tdap) 2005 Hepatitis B Vaccines (1 of 3 - 19+ 3-dose series) 2005 Depression Risk Screening 09/27/2024 SDOH Screening 09/27/2024 COVID-19 Vaccine (4 - 2024-2 6 season) 2025 09/29/2021, 03/23/2021, 03/02/2021 Influenza Vaccine (#1) 2025 Zoster Vaccines (1 of 2) 2036 HIB Vaccines Aged Out No longer eligi ble based on patient's age to complete this topic HPV Vaccines Aged Out No longer eligi ble based on patient's age to complete this topic Hepatitis A Vaccines Aged Out No long er eligible based on patient's age to complete this topic IPV Vaccines Aged Out No longer eligi ble based on patient's age to complete this topic Meningococcal B Vaccine Aged Out No l onger eligible based on patient's age to complete this topic Meningococcal Vaccine Aged Out No thanh jeane eligible based on patient's age to complete this topic Pneumococcal Vaccine Aged Out No long er eligible based on patient's age to complete this topic Rotavirus Vaccines Aged Out No longer eligible based on patient's age to complete this topic Insurance AETNA OUT OF NETWORK EFF 04/27/2025
[2025-06-01] MEDS: ACETAMINOPHEN 325MG TAB 650 MG PO (08:10)
[2025-06-01] MEDS: INFLIXIMAB IV (08:40)
[2025-06-01] MEDS: SODIUM CHLORIDE 0.9% IV (08:40)
[2025-06-01 08:45] VITALS: BP 130/71; PULSE 73; RESP 18; TEMP 36.7; O2SAT 99
[2025-06-01 09:15] VITALS: BP 132/65; PULSE 69
[2025-06-01 09:45] VITALS: BP 129/66; PULSE 72
[2025-06-01 10:15] VITALS: BP 134/68; PULSE 75
[2025-06-01 10:30] VITALS: BP 132/71; PULSE 71
[2025-06-01 10:55] VITALS: BP 130/65; PULSE 73; O2SAT 100
== END 2025-06-01 11:00 | disposition home or self-care (01) ==
LOC: INF 08:01
PROVIDERS: PCP Family Medicine; Visit Provider Dermatology
DX: L73.2 Hidradenitis suppurativa (principal)
CPT/HCPCS: 96413; 96415; J1745; J7050

== ENCOUNTER 2025-07-06 08:06 | Outpatient (CLI) | payer OTHER, SELFPAY ==
--- OUTSIDE RECORDS SUMMARY | 2025-07-06 08:10 | XMS_ITS | Referral Summary ---
Author Organization [employer] ([place], [place], [place], [place]) Address [address] [place] [address] Care Team Providers Care System Dispatcher Name Role Phone Unavailable Primary Care Provider [...] Date Kane rded Speak language other than Spanish at home Not on file 01/07/2024 Want [...]
--- OUTSIDE RECORDS SUMMARY | 2025-07-06 08:10 | XMS_ITS | Clinical Summary ---
[facility] Address [address] [place] [address] Care Team Providers Care Resin Shaver Name Role Phone Rossy Barr Primary Care [...] Used Date Smoking Tobacco: Former Cigarettes 0.5 21 S tarted: 07/21/2014 Passive Smoke Exposure: Never [...] Health Maintenance Due Date Last Done Comments INFLUENZA VACCINE 04/27/2025 ANNUAL PHYSICAL 10/10/2025 10/10/2024 TDAP/TD VACCINES (1 - Tdap) 10/10/2025 Postponed from 2005 (Patient Refused) HEPATITIS C SCREENING Completed 01/31/2024 (Patient-Reported (Performed Externally)) Pneumococcal Vaccine 0-49 Aged Out No longer eligible based on patient's age to complete this topic Insurance [employer] PREFERRED ALL STATES Care Teams Resin Shaver Relationship Specialty Start Date End Date Rossy Barr DO [address] [place] [address] PCP - General Family Medicine 07/03/24
--- OUTSIDE RECORDS SUMMARY | 2025-07-06 08:10 | XMS_ITS | Clinical Summary ---
Author Organization Healthcare Address [address] [place] [address] Care Team Providers Care Customer Support Assistant Name Role Phone Unavailable Primary Care Provider Unavailabl e Encounters Date Type Department Care Team Description 05/10/2025 Telephone [facility] [address] [place] [address] Kristie Giraldo PA from Last [...] (1 - 3-dose SCD M series) 2013 [id number] Vaccine (1 - 20 24-25 season) 2025 [...]
--- OUTSIDE RECORDS SUMMARY | 2025-07-06 08:10 | XMS_ITS | Encounter Summary ---
Author Organization Healthcare Address [address] [place] [address] Care Team Providers Care Graduate Teaching Assistant Name Role Phone Unavailable Primary Care Provider Unavailabl e Encounter Details Date Type Department Care Team (Late st Contact Info) Description 05/10/2025 Telephone [facility] [address] [place] [address] Kristie Giraldo PA [address] [place] [address] Social History Tobacco Use Types [...] Clinical Concern/Question Reason for Call: Per [facility], states patient needs order for his Entivyo F# [phone] Best contact number: Other: [phone] Optimal time of day to reach caller: [...] will receive notification of the communication/outcome via [employer] documented in this encounter Plan of Treatment Not on file documented as of this encounter Visit Diagnoses Not on filedocumented in this encounter
--- OUTSIDE RECORDS SUMMARY | 2025-07-06 08:10 | XMS_ITS | Clinical Summary ---
Author Organization [employer] ([place], [place], [place], [place]) Address [address] [place] [address] Care Team Providers Care Fermentation Operator Name Role Phone Unavailable Primary Care [...] Date Kane rded Speak language other than Romanian at home Not on file 01/07/2024 Want [...] (1 - Tdap) 2005 Lipid Panel 2021 Tobacco Cessation Counseling and Screening (12+) 01/09/2025 01/10/2024 COVID-19 VACCINE (4 - 2024-2 6 season) 2025 09/29/2021, 03/23/2021, 03/02/2021 Influenza Vaccine (#1) 2025 Pneumococcal Vaccine: 0-49 Years Aged Out No longer eligible b ased on patient's age to complete this topic Insurance [employer]
[2025-07-06] MEDS: ACETAMINOPHEN 325MG TAB 650 MG (08:13)
[2025-07-06] MEDS: INFLIXIMAB IV (08:49)
[2025-07-06] MEDS: SODIUM CHLORIDE 0.9% IV (08:49)
[2025-07-06 08:55] VITALS: BP 142/81; PULSE 61; RESP 18; TEMP 36.7; O2SAT 99
[2025-07-06 09:30] VITALS: BP 143/79; PULSE 59
[2025-07-06 10:00] VITALS: BP 136/71; PULSE 62
[2025-07-06 10:30] VITALS: BP 141/71; PULSE 60
[2025-07-06 10:55] VITALS: BP 136/63; PULSE 63
== END 2025-07-06 11:00 | disposition home or self-care (01) ==
LOC: INF 08:07
PROVIDERS: PCP Family Medicine; Visit Provider Dermatology
DX: L73.2 Hidradenitis suppurativa (principal)
CPT/HCPCS: 96375; 96413; 96415; J1745

== ENCOUNTER 2025-08-31 08:08 | Outpatient (CLI) | payer OTHER, SELFPAY ==
[2025-08-31 08:09] VITALS: BMI 31.6
--- OUTSIDE RECORDS SUMMARY | 2025-08-31 08:13 | XMS_ITS | Clinical Summary ---
Author Organization [facility] Address [address] [place] [address] Care Team Providers Care Car Park Attendant Name Role Phone Unavailable Primary Care Provider [...] (1 - 3-dose SCD M series) 2013 [id number] Vaccine (1 - 20 25-26 season) 2025 [facility]-Influenza Vaccine (#1) 2025 [facility]-Zoster [...]
[2025-08-31] MEDS: ACETAMINOPHEN 325MG TAB 650 MG (08:18)
[2025-08-31 08:29] LABS: Hematocrit 36.8 % (42.0-52.0); Hemoglobin 12.1 g/dL (14.1-18.0); Immature Granulocytes % 0.4 %; Mean Corpuscular HGB Conc 32.9 g/dL (31.8-35.4); Mean Corpuscular Hemoglobin 26.5 pg (27.0-31.2); Mean Corpuscular Volume 80.7 fl (80-94); Nucleated Red Blood Cells % 0 %; Platelet Count 568 K/mm3 (142-424); Red Blood Count 4.56 M/mm3 (4.60-6.20); Red Cell Distribution Width-SD 44.1 fL; White Blood Count 14.3 K/mm3 (4.8-10.8)
[2025-08-31 08:37] LABS: Albumin Level 4.0 g/dl (3.5-5.0); Chloride 107 mmol/L (98-107); Sodium 143 mmol/L (136-145)
[2025-08-31 08:38] LABS: Potassium 3.8 mmoL/L (3.5-5.1)
[2025-08-31 08:40] LABS: Alanine Aminotransferase 37 U/L (12-78); Alkaline Phosphatase 127 U/L (38-126); Anion Gap 16.8 mEq/L (5-15); Aspartate Amino Transferase 29 U/L (17-59); Bilirubin,Total 0.4 mg/dl (0.2-1.3); Blood Urea Nitrogen 12 mg/dl (9-20); Carbon Dioxide 23 mmol/L (22.0-30.0); Creatinine Clearance Estimated 186 mL/min (50-200); Creatinine,Serum 0.90 mg/dl (0.66-1.25); Estimated Glomerular Filt Rate 94 ml/min (>60); GFR (African American) 114 ML/MIN (>60)
[2025-08-31 08:41] LABS: Albumin/Globulin Ratio 0.8 (1.1-1.8); Calcium 8.9 mg/dl (8.4-10.2); Globulin 5.1 g/dL (1.3-3.2); Glucose 105 mg/dl (74-100); Total Protein,Serum 9.1 g/dl (6.3-8.2)
[2025-08-31 08:55] VITALS: BP 150/80; PULSE 91; RESP 17; O2SAT 94
[2025-08-31 09:25] VITALS: BP 122/67; PULSE 88; RESP 16
[2025-08-31 09:55] VITALS: BP 134/70; PULSE 73; RESP 16
[2025-08-31 10:25] VITALS: BP 122/74; PULSE 74; RESP 16
[2025-08-31 10:55] VITALS: BP 122/78; PULSE 73; RESP 16
[2025-08-31 11:05] VITALS: BP 122/82; PULSE 79; RESP 17
== END 2025-08-31 23:59 | disposition home or self-care (01) ==
LOC: INF 08:11
PROVIDERS: PCP Family Medicine; Visit Provider Dermatology
DX: L73.2 Hidradenitis suppurativa (principal)
CPT/HCPCS: 80053; 85025; 96413; 96415; J1745